=== PATIENT | male | born 1965 | race Caucasian/White ===

== ENCOUNTER 2018-12-22 00:25 | Emergency (ER) | payer BC, OTHER ==
[2018-12-22] MEDS: GI Cocktail Oral Solution 30 ML PO ONE (00:40)
[2018-12-22] MEDS: Nitroglycerin 0.4 MG Tab.SL SL ONE ×2 (01:14→01:22)
[2018-12-22 01:15] LABS: CHLORIDE,CL 104 mmol/L (98-107); SODIUM,NA 142 mmol/L (136-145)
[2018-12-22] MEDS: Nitroglycerin 0.4 MG Tab.SL ONE (01:18)
[2018-12-22] MEDS: Sodium Chloride 0.9% 1,000 ML IV SCH (01:29)
--- NOTE | 2018-12-22 01:36 | EDM.PDOC ---
ED HPI GENERAL MEDICAL PROBLEM - General Chief Complaint: Chest Pain Stated Complaint: CHEST PAIN Time Seen by Provider: 12/22/18 00:25 Source of Information: Reports: Patient History Limitations: Reports: No Limitations - History of Present Illness INITIAL COMMENTS - FREE TEXT/NARRATIVE: Patient is a 53-year-old gentleman who was brought in by girlfriend with chief complaint of chest pain about 8 out of 10 left arm numbness this has been going on for about 8 hours today patient does state that he started having chest pain 3 days ago and was heading to [facility] when he started feeling better then turned back home and he also had numbness on his left arm at the same time he denies nausea or vomiting. Patient did take some antacids on Friday which helped him but has not helped today EKG done reveals normal sinus rhythm no specific intraventricular conduction delays no acute ST changes Onset: Sudden Duration: Day(s): (3 days ago), Recurring Location: Reports: Chest Quality: Reports: Ache, Burning, Pressure, Other (Patient described as heavy and burning) Severity: Moderate Improves with: Reports: None Worsens with: Reports: Movement Context: Reports: Other (Chest pain) Associated Symptoms: Reports: Chest Pain - Related Data Allergies Allergy/AdvReac Type Severity Reaction Status Date / Time aspirin Allergy Cannot Verified 12/22/18 00:38 Remember Penicillins Allergy Cannot Verified 12/22/18 00:38 Remember Home Meds: Home Meds glipiZIDE [Glipizide ER] 5 mg PO BIDMEALS 12/22/18 [History] metFORMIN [Glucophage XR] 500 mg PO BIDMEALS 12/22/18 [History] ED ROS GENERAL - Review of Systems Review Of Systems: See Below Constitutional: Reports: Weakness HEENT: Reports: No Symptoms Respiratory: Reports: Shortness of Breath, Cough Cardiovascular: Reports: Chest Pain Endocrine: Reports: Other (Diabetes) GI/Abdominal: Reports: No Symptoms : Reports: No Symptoms Musculoskeletal: Reports: Arm Pain (Left arm) Skin: Reports: No Symptoms ED EXAM, GENERAL - Physical Exam Exam: See Below Exam Limited By: No Limitations General Appearance: Alert, WD/WN, Mild Distress Ears: Normal External Exam, Normal Canal, Hearing Grossly Normal, Normal TMs Nose: Normal Inspection, Normal Mucosa, No Blood Throat/Mouth: Normal Inspection, Normal Lips, Normal Teeth, Normal Gums, Normal Oropharynx, Normal Voice, No Airway Compromise Head: Atraumatic, Normocephalic Neck: Normal Inspection, Supple, Non-Tender, Full Range of Motion Respiratory/Chest: Lungs Clear, Decreased Breath Sounds, Prolonged Expiration Cardiovascular: Normal Peripheral Pulses, Regular Rate, Rhythm, No Edema, No Gallop, No JVD, No Murmur, No Rub GI/Abdominal: Normal Bowel Sounds, Soft, Non-Tender, No Organomegaly, No Distention, No Abnormal Bruit, No Mass (Male) Exam: Deferred Rectal (Males) Exam: Deferred Extremities: Normal Inspection, Normal Range of Motion, Non-Tender, Normal Capillary Refill, No Pedal Edema Neurological: Alert, Oriented, CN II-XII Intact, Normal Cognition, Normal Gait, Normal Reflexes, No Motor/Sensory Deficits Psychiatric: Normal Affect, Normal Mood Skin Exam: Warm, Dry, Intact, Normal Color, No Rash Lymphatic: No Adenopathy Course - Vital Signs Last Recorded V/S: Last Vital Signs Temp 97.8 F 12/22/18 00:25 Pulse 71 12/22/18 00:25 Resp 14 12/22/18 00:25 BP 165/95 H 12/22/18 00:25 Pulse Ox 98 12/22/18 00:25 - Orders/Labs/Meds Orders: Active Orders 24 hr Category Date Time Status Chest 1V Frontal [CR] Stat Exams 12/22/18 00:42 Ordered CK W CKMB [CHEM] Stat Lab 12/22/18 00:35 Received COMPREHENSIVE METABOLIC PN,CMP [CHEM] Stat Lab 12/22/18 00:35 Received INR,PT,PROTHROMBIN TIME [COAG] Stat Lab 12/22/18 00:35 Received LACTIC ACID [CHEM] Stat Lab 12/22/18 00:35 Received MAGNESIUM [CHEM] Stat Lab 12/22/18 00:35 Received PRO B-TYPE NATRIUR PEPT,BNPPRO [CHEM] Stat Lab 12/22/18 00:35 Received PTT,PARTIAL THROMBOPLSTIN TIME [COAG] Stat Lab 12/22/18 00:35 Received TROPONIN I [CHEM] Stat Lab 12/22/18 00:35 Received TSH ULTRASENSITIVE [CHEM] Stat Lab 12/22/18 00:35 Received Labs: Laboratory Tests 12/22/18 12/22/18 Range/Units 00:35 00:35 WBC 9.7 (4.0-10.2) K/uL RBC 4.98 (4.33-5.41) M/uL Hgb 14.5 (13.1-16.8) g/dL Hct 42.6 (39.0-49.0) % MCV 85.5 (84.0-98.0) fL MCH 29.1 (28.2-33.3) pg MCHC 34.0 (31.7-36.0) g/dL RDW 13.7 (11.2-14.1) % Plt Count 235 (150-350) K/uL Neut % (Auto) 56.0 (45.0-80.0) % Lymph % (Auto) 32.8 (10.0-50.0) % Garza % (Auto) 8.5 (2.0-14.0) % Eos % (Auto) 2.1 (0.0-5.0) % Baso % (Auto) 0.6 (0.0-2.0) % Neut # (Auto) 5.45 (1.40-7.00) K/uL Lymph # (Auto) 3.19 (0.50-3.50) K/uL Garza # (Auto) 0.83 (0.00-1.00) K/uL Eos # (Auto) 0.20 (0.00-0.50) K/uL Baso # (Auto) 0.06 (0.00-0.20) K/uL D-Dimer, Quantitative 354 (0-400) ng/mL Meds: Medications Discontinued Medications Generic Name Dose Route Start Last Admin Trade Name Freq PRN Reason Stop Dose Admin Al Hydroxide/Mg Hydroxide 30 ml 12/22/18 00:40 Gi Cocktail PO 12/22/18 00:41 ONETIME ONE Departure - Departure Time of Disposition: 01:54 Disposition: DC/Tfer to Acute Hospital 02 Reason for Transfer *Q: Other (None ST elevation [place]) Condition: Serious Clinical Impression: Non-ST elevated myocardial infarction (non-STEMI) Acute myocardial infarction Qualifiers: Myocardial infarction type: non-ST elevation myocardial infarction Qualified Code(s): I21.4 - Non-ST elevation (NSTEMI) myocardial infarction Referrals: PCP,Not In Area [Primary Care Provider] - Care Plan Goals: Patient was seen in the ER troponins elevated at 3.87 spoke with cardiology and hospitalist at [facility] agreed to take him patient given 2 nitros improved pain we'll start [place] [address] total 180 and heparin drip patient is allergic to aspirin no aspirin given. No beta blockers given at this time secondary to blood pressure being low. - My Orders Last 24 Hours: My Active Orders 12/22/18 00:35 CK W CKMB [CHEM] Stat COMPREHENSIVE METABOLIC PN,CMP [CHEM] Stat INR,PT,PROTHROMBIN TIME [COAG] Stat LACTIC ACID [CHEM] Stat MAGNESIUM [CHEM] Stat PRO B-TYPE NATRIUR PEPT,BNPPRO [CHEM] Stat PTT,PARTIAL THROMBOPLSTIN TIME [COAG] Stat TROPONIN I [CHEM] Stat TSH ULTRASENSITIVE [CHEM] Stat 12/22/18 00:42 Chest 1V Frontal [CR] Stat - Assessment/Plan Last 24 Hours: My Active Orders 12/22/18 00:35 CK W CKMB [CHEM] Stat COMPREHENSIVE METABOLIC PN,CMP [CHEM] Stat INR,PT,PROTHROMBIN TIME [COAG] Stat LACTIC ACID [CHEM] Stat MAGNESIUM [CHEM] Stat PRO B-TYPE NATRIUR PEPT,BNPPRO [CHEM] Stat PTT,PARTIAL THROMBOPLSTIN TIME [COAG] Stat TROPONIN I [CHEM] Stat TSH ULTRASENSITIVE [CHEM] Stat 12/22/18 00:42 Chest 1V Frontal [CR] Stat
[2018-12-22] MEDS: Ticagrelor 90 MG Tab PO ONE ×2 (01:39→01:43)
[2018-12-22] MEDS ORDERED: Morphine 2 MG/ML Syringe IVPUSH PRN (01:41)
[2018-12-22] MEDS: Pantoprazole 40 MG Vial IVPUSH ONE (01:46)
[2018-12-22] MEDS: Sodium Chloride 0.9% 10 ML Syringe FLUSH SCH (01:46)
[2018-12-22] MEDS: Heparin Sodium 5,000 Units/ML Vial IVPUSH STA (01:49)
[2018-12-22] MEDS: Heparin Sodium/D5W 25,000 UNITS/500 ML BAG IV SCH (01:53)
--- OUTSIDE RECORDS SUMMARY | 2018-12-23 16:20 | XMSREPORT ---
:1965 Author Organization [facility] Address [facility] [place] [address] Care Team Providers Name Role Phone Pcp, Ophelia MD Primary Care Provider Unavailable Reason for Referral Comprehensive Primary Care Plus (Routine) Status Reason Specialty Diagnoses / Procedures Referred By Referred To Contact Contact New Request CARDIOLOGY Diagnoses Non-ST elevation NV (NSTEMI) ([facility]) S/P cardiac catheterization [facility]iology Maris Kramer, [address] [place] [address] MD WALKER [address] [address] [place], [place] Phone: [phone] Phone: Scheduling Instructions This is an electronic referral. Reason for Visit Reason Comments Auth/Cert Status Reason Specialty Diagnoses / Procedures Referred By Contact Referred To Contact Encounter Details Date Type Department Care Team Description 12/22/2018 - Hospital Encounter [facility] Elisa Galloway MD [address] [place] [address] [phone] Non-ST elevation NV 12/23/2018 CENTER [facility] Maris Silver MD [address] [place], [place] [id number] (NSTEMI) ([facility]) [address] [place] [address] Allergies Active Allergy Reactions Severity Noted Date Comments Aspirin Unknown/Not Verified Low 12/24/2011 Does not know reaction, told was allergic as a child Metformin Diarrhea High 12/22/2018 Penicillin Unknown/Not Verified Low 12/24/2011 Does not know reaction, told was allergic as a child documented as of this encounter (statuses as of 12/23/2018) Medications Medication Sig Dispensed Refills Start Date End Date Status naproxen (ALEVE) 220 Take 440 mg by 0 Active mg tablet mouth at bedtime as needed for mild pain or moderate pain glipiZIDE Take 5 mg by 0 Active (GLUCOTROL) 5 mg mouth 2 times tablet a day with meals potassium 99 MG Take 99 mg by 0 Active tablet mouth as needed for other (Specify) (leg cramps) albuterol HFA Inhale 2 puffs 0 Active (PROVENTIL,PROAIR,VE orally Every 4 NTOLIN) 108 (90 hours as Base) MCG/ACT needed for inhaler shortness of breath or wheezing Shake well before using. aspirin 81 mg Take 1 tablet 90 tablet 0 12/24/2018 Active chewable (81 mg) by 0 tabletIndications: mouth 1 time Non-ST elevation NV per day (NSTEMI) ([facility]), S/P cardiac catheterization clopidogrel (PLAVIX) Take 1 tablet 90 tablet 4 12/24/2018 Active 75 mg (75 mg) by tabletIndications: mouth 1 time S/P cardiac per day catheterization lisinopril Take 1 tablet 90 tablet 4 12/24/2018 Active (PRINIVIL, ZESTRIL) (2.5 mg) by 0 2.5 MG mouth 1 time tabletIndications: per day Non-ST elevation NV (NSTEMI) ([facility]) metoprolol tartrate Take 1 tablet 180 tablet 4 12/23/2018 Active (LOPRESSOR) 25 mg (25 mg) by 0 tabletIndications: mouth 2 times Non-ST elevation NV a day (NSTEMI) ([facility]) nitroglycerin Dissolve 1 90 tablet 4 12/23/2018 Active (NITROSTAT) 0.4 mg tablet (0.4 0 sublingual mg) under the tabletIndications: tongue Every 5 Non-ST elevation NV minutes as (NSTEMI) ([facility]) needed for chest pain May repeat every 5 minutes for a total of 3 doses. SITagliptin Take 1 tablet 90 tablet 4 12/24/2018 Active (JANUVIA) 50 mg (50 mg) by 0 tabletIndications: mouth 1 time Type 2 diabetes per day mellitus without complication, without long-term current use of insulin ([facility]) rosuvastatin Take 2 tablets 90 tablet 0 12/23/2018 Active (CRESTOR) 20 mg (40 mg) by 0 tabletIndications: mouth every Non-ST elevation NV night at (NSTEMI) ([facility]) bedtime clopidogrel (PLAVIX) Take 1 tablet 30 tablet 2 12/26/2011 Discontinued 75 mg tablet by mouth 1 9 time per day. simvastatin (ZOCOR) Take 1 tablet 30 tablet 2 12/26/2011 Discontinued 20 mg tablet by mouth every 9 night at bedtime. metFORMIN Take 500 mg by 0 Discontinued (GLUCOPHAGE) 500 MG mouth 2 times 9 tablet a day with meals rosuvastatin Take 20 mg by 0 Discontinued (CRESTOR) 20 mg mouth every 9 tablet night at bedtime documented as of this encounter (statuses as of 12/23/2018) Active Problems Problem Noted Date S/P cardiac catheterization 12/22/2018 Stented coronary artery 12/22/2018 Overview: RCA Type 2 diabetes mellitus, without long-term current use of insulin 12/22/2018 Other hyperlipidemia 12/22/2018 documented as of this encounter (statuses as of 12/23/2018) Resolved Problems Problem Noted Date Resolved Date Non-ST elevation NV (NSTEMI) 12/22/2018 12/23/2018 documented as of this encounter (statuses as of 12/23/2018) Immunizations Name Dates Previously Given Next Due Influenza Vaccine 12/26/2011 documented as of this encounter Social History Tobacco Use Types Packs/Day Years Used Date Current Every Day Smoker Cigarettes 1.5 40 Smokeless Tobacco: Never Used Tobacco Cessation: Ready to Quit: Yes; Counseling Given: No Alcohol Use Drinks/Week oz/Week Comments Yes 1 Cans of beer 0.6 Alcohol Habits Answer Date Recorded How often do you have a drink containing alcohol? Monthly or less 12/22/2018 How many drinks containing alcohol do you have on a 1 or 2 12/22/2018 typical day when you are drinking? How often do you have six or more drinks on one Not asked occasion? Sexually Active Control Partners Comments Yes Female Sex Assigned at Date Recorded Not on file Job Start Date Occupation Industry Not on file Not on file Not on file Travel History Travel Start Travel End No recent travel history available. documented as of this encounter Last Filed Vital Signs Vital Sign Reading Time Taken Blood Pressure 121/72 12/23/2018 12:28 PM CDT Pulse 69 12/23/2018 12:28 PM CDT Temperature 36.6 C (97.8 F) 12/23/2018 12:28 PM CDT Respiratory Rate 13 12/23/2018 12:28 PM CDT Oxygen Saturation 92% 12/23/2018 8:00 AM CDT Inhaled Oxygen Concentration - - Weight 106.9 kg (235 lb 10.8 oz) 12/23/2018 4:00 AM CDT Height 185.4 cm (6' 1") 12/22/2018 3:40 AM CDT Body Mass Index 31.09 12/22/2018 3:40 AM CDT documented in this encounter Functional Status Functional Status Response Date of Assessment Is the person deaf or does he/she have serious difficulty No 12/22/2018 hearing? Is this person blind or does he/she have difficulty Yes 12/22/2018 seeing even when wearing glasses? Do you have difficulty with walking, balance, climbing No 12/22/2018 stairs, or had a fall in the last 3 months? Does the patient have difficulty dressing or bathing? No 12/22/2018 Because of a physical, mental, or emotional condition; No 12/22/2018 does this person have difficulty doing errands alone such as visiting a doctor's office or shopping? Cognitive Status Response Date of Assessment Because of a physical, mental, or emotional condition; No 12/22/2018 does this person have serious difficulty concentrating, remembering, or making decisions? documented as of this encounter Discharge Summaries Not on filedocumented in this encounter Discharge Instructions InstructionsSannlibertad-Maris Lagos MD - 12/23/2018Take all meds as prescribed. Follow up with cardiology outpatient in 4-6 weeks. Follow up with primary doctor in one week. For your diabetes, we started a new medicine called Januvia. You can take this every morning to help lower your blood sugar. You should stop your metformin because it gave you diarrhea. Continue your glipizide. For your heart attack, we started two blood thinners - plavix and aspirin. It is very important that you take both to protect your stent and keep your blood thin. If you have any bleeding, see your doctor to discuss. You also were started on a low dose blood pressure pill called lisinopril to help your heart, and a medicine to control your heart rate called lopressor ( metoprolol). You will take the lopressor twicea day. Please follow up within a week with your primary provider to recheck these medications and follow upon how you are doing. You will also need to see cardiology here back in 4-6 weeks. If you have recurrent pain, go to the ER. AttachmentsThe following attachments cannot be sent through Care Everywhere.Stents, Coronary (German)Diet, Low-Salt (German)Eating Heart- Healthy Foods (German)documented in this encounter Medications at Time of Discharge Medication Sig Dispensed Refills Start Date End Date aspirin 81 mg chewable Take 1 tablet (81 90 tablet 0 12/24/2018 12/29/2019 tabletIndications: Non-ST mg) by mouth 1 time elevation NV (NSTEMI) per day ([facility]), S/P cardiac catheterization clopidogrel (PLAVIX) 75 Take 1 tablet (75 90 tablet 4 12/24/2018 mg tabletIndications: S/P mg) by mouth 1 time cardiac catheterization per day lisinopril (PRINIVIL, Take 1 tablet (2.5 90 tablet 4 12/24/2018 12/29/2019 ZESTRIL) 2.5 MG mg) by mouth 1 time tabletIndications: Non-ST per day elevation NV (NSTEMI) ([facility]) metoprolol tartrate Take 1 tablet (25 180 tablet 4 12/23/2018 12/28/2019 (LOPRESSOR) 25 mg mg) by mouth 2 tabletIndications: Non-ST times a day elevation NV (NSTEMI) ([facility]) nitroglycerin (NITROSTAT) Dissolve 1 tablet 90 tablet 4 12/23/20182019 0.4 mg sublingual (0.4 mg) under the tabletIndications: Non-ST tongue Every 5 elevation NV (NSTEMI) minutes as needed ([facility]) for chest pain May repeat every 5 minutes for a total of 3 doses. SITagliptin (JANUVIA) 50 Take 1 tablet (50 90 tablet 4 12/24/20182019 mg tabletIndications: mg) by mouth 1 time Type 2 diabetes mellitus per day without complication, without long-term current use of insulin ([facility]) rosuvastatin (CRESTOR) 20 Take 2 tablets (40 90 tablet 0 12/23/20182019 mg tabletIndications: mg) by mouth every Non-ST elevation NV night at bedtime (NSTEMI) ([facility]) naproxen (ALEVE) 220 mg Take 440 mg by 0 tablet mouth at bedtime as needed for mild pain or moderate pain glipiZIDE (GLUCOTROL) 5 Take 5 mg by mouth 0 mg tablet 2 times a day with meals potassium 99 MG tablet Take 99 mg by mouth 0 as needed for other (Specify) (leg cramps) albuterol HFA Inhale 2 puffs 0 (PROVENTIL,PROAIR,VENTOLI orally Every 4 N) 108 (90 Base) MCG/ACT hours as needed for inhaler shortness of breath or wheezing Shake well before using. documented as of this encounter Progress Notes Citlali Barajas PHARM D - 12/22/2018 1:52 PM CDTCoronary Intervention Post Procedure Medication Education by Pharmacy Coronary intervention post procedure medication education was completed by pharmacy. The mechanism of action, efficacy, side effects, risks, and monitoring of aspirin, clopidogrel, metoprolol, rosuvastatin, and sublingual nitroglycerin were reviewed with the patient. All questions were answered, andthe patient and family verbalized understanding. Please call #[phone] with any questions. Respectfully, Citlali Barajas PharmD [phone] Citlali Woodward, PHARM D - 12/22/2018 12:02 PM CDT12/22/2018 12:02 PM -- Patient was seen by the pharmacy med reconciliation team and HOME MEDICATIONS have been reconciled and updated to match the patient's home usage. Citlali Barajas PharmD Cabrera Yadav MD - 12/22/2018 7:01 AM CDTAssessment: 1. Acute non-ST segment elevation myocardial infarction. 2. Hypertension. 3. Type 2 diabetes mellitus. 4. Hyperlipidemia. 5. Cerebrovascular disease, history of a CVA. Recommendations 1. Continue IV nitroglycerin and morphine as needed. 2. Left heart cardiac catheterization. The risk and benefits have been explained to the patient who wishes to proceed. The patient is a 53-year-old male w ho was in his usual state of health until the past several days when he began experience intermittent chest discomfort. He describes it as a substernal pressure sensation. On the day of admission, the chest pain became more severe or persistent. Because of this he was admitted to the local hospital in [facility] where he was felt to be experiencing an acute non-ST segment elevation myocardial infarction, characterized by an elevated troponin and an EKG which revealed ST segment depression. He was started on IV heparin and was given nitroglycerin with some improvement in the chest discomfort. He was also given a dose of Brilinta 180 mg was transferred to [place] further management. He continued to have chest discomfort after transfer at times up to a level 10 out of 10. He was given IV nitroglycerin and the dose was increased to maximal levels. He was also given morphine which improved his chest discomfort down to approximately a level 2 outof 10. The patient denies any previous MIs. He did have a CVA approximately 6 years ago in 2012. This didnot result in any significant residual defects. He has always been active and able to engage in most of his any problems. He denies any signs or symptoms of decompensated heart failure, any significant symptomatic cardiac arrhythmi as or claudication. Coronary risk factors are positive for smoking and he smokes 1-1/2 packs/day of cigarettes. He doeshave hypertension, type 2 diabetes mellitus and hyperlipidemia. Family history is positive in that his father and brother both presumably from myocardial infarctions at the ages of approximately 60 and 55, respectively. The patient denies any other significant medical illnesses. Allergies ar e to penicillin and aspirin. documented in this encounter Plan of Treatment Name Priority Associated Diagnoses Order Schedule CLINIC REFERRAL CARDIOLOGY Routine Non-ST elevation NV (NSTEMI) Ordered: 02/2019 ONE CHART ([facility]) S/P cardiac catheterization documented as of this encounter Procedures Procedure Name Priority Date/Time Associated Comments Diagnosis GLUCOSE BY METER, Routine 12/23/2018 11:21 Results for this POCT AM CDT procedure are in the results section. CREATININE Routine 12/23/2018 6:42 Results for this AM CDT procedure are in the results section. GLUCOSE BY METER, Routine 12/23/2018 6:32 Results for this POCT AM CDT procedure are in the results section. GLUCOSE BY METER, Routine 12/22/2018 9:23 Results for this POCT PM CDT procedure are in the results section. GLUCOSE BY METER, Routine 12/22/2018 5:10 Results for this POCT PM CDT procedure are in the results section. GLUCOSE BY METER, Routine 12/22/2018 12:19 Results for this POCT PM CDT procedure are in the results section. EKG Routine 12/22/2018 11:48 Results for this AM CDT procedure are in the results section. ECHO ADULT COMPLETE Routine 12/22/2018 10:29 Results for this AM CDT procedure are in the results section. PTT Timed Routine 12/22/2018 9:57 Results for this AM CDT procedure are in the results section. TROPONIN I Timed Routine 12/22/2018 9:57 Results for this AM CDT procedure are in the results section. EKG STAT 12/22/2018 8:55 Results for this AM CDT procedure are in the results section. GLUCOSE BY METER, Routine 12/22/2018 8:40 Results for this POCT AM CDT procedure are in the results section. ACTIVATED CLOTTING Routine 12/22/2018 7:39 Results for this TIME POCT AM CDT procedure are in the results section. CARDIAC CATH POSSIBLE Routine 12/22/2018 7:36 Results for this ANGIOPLASTY STENT AM CDT procedure are in BAND ATTACHER the results section. LIPID PANEL Routine 12/22/2018 6:59 Results for this AM CDT procedure are in the results section. GLYCATED HEMOGLOBIN Routine 12/22/2018 6:59 Results for this AM CDT procedure are in the results section. TROPONIN I Timed Routine 12/22/2018 6:59 Results for this AM CDT procedure are in the results section. LAB ONLY-COMPLETE Routine 12/22/2018 4:10 Results for this BLOOD COUNT WITH AM CDT procedure are in DIFFERENTIAL the results section. PTT MURTAZA 12/22/2018 4:10 Results for this AM CDT procedure are in the results section. TROPONIN I Timed Routine 12/22/2018 4:10 Results for this AM CDT procedure are in the results section. COMPREHENSIVE Routine 12/22/2018 4:10 Results for this METABOLIC PANEL AM CDT procedure are in the results section. COMPLETE BLOOD COUNT Routine 12/22/2018 4:10 Results for this WITH DIFFERENTIAL AM CDT procedure are in the results section. EKG MURTAZA 12/22/2018 3:51 Results for this AM CDT procedure are in the results section. documented in this encounter Results GLUCOSE BY METER, POCT (12/23/2018 11:21 AM CDT)Only the most recent of6 resultswithin the time period is included. Glucose POC 178 (H) 70 - 100 mg/dL [facility] POINT OF CARE TESTING Specimen Blood Performing Organization Address City/[facility] Cent[facility]ode Phone Number [facility] POINT OF [address] [place] [address] CARE TESTING CREATININE (12/23/2018 6:42 AM CDT) Creatinine 0.99 0.80 - 1.[address] mg/dL Age 53 [address] eGFR Non- 78 >=[address] Guyanese mL/min/1.73m2 eGFR >90 >=[address] mL/min/1.73m2 Specimen Blood Performing Organization Address [facility] Phone Number [place] [address] CLINIC [address] [place] [address] EKG to be done 3 hours post coronary intervention (12/22/2018 11:48 AM CDT)Only the most recent of3 resultswithin the time period is included. EKG WAVEFORM TRACEMASTESTEVAN MORENO LLB Normal sinus rhythm Left axis deviation Inferior infarct , age undetermined Abnormal ECG When compared with ECG of 22-DEC-2018 08:55, Premature ventricular complexes are no longer Present Ventricular Rate: 68 BPM Atrial Rate: 68 BPM P-R Interval: 184 ms QRS Duration: 108 ms Q-T Interval: 420 ms QTc Calculation(Bazett): 446 ms Calculated P [place]: 16 degrees Calculated R [place]: -37 degrees Calculated T [place]: -3 degrees Specimen Narrative Performed At Performing Organization Address City/[facility] Center[facility]az Phone Number TRACEMASTER TIFFANIE LLTraci ECHO ADULT COMPLETE (12/22/2018 10:29 AM CDT) Specimen Narrative Performed At [facility] Patient: YVES HOOD MR#:[id number] Exam Date: 12/22/[address] 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 The ejection fraction is visually estimated to be 55 %. Right Ventricle: Low normal right ventricular systolic function. IVC: Normal IVC size with normal respirophasic changes. Pericardium: No significant pericardial effusion.No functionally significant valvular abnormalities. Comparison Study Comparison Date: 12/25/2011 Comparison Study: Transthoracic Echocardiogram New RWMA's noted on today's exam, RV function has worsened, Aortic regurgitation has worsened Findings Left Ventricle: Normal left ventricular size. Normal left ventricular wall thickness. Normal left ventricular systolic function. The ejection fraction is visually estimated to be 55 %. The basal inferior and mid inferior wall segments are hypokinetic. Grade 1 left ventricular diastolic dysfunction. IVS: Increased left ventricular septal thickness. Left Atrium: Normal left atrial size. Aortic Valve: The aortic valve is tricuspid. Mild aortic cuspal thickening. Mild aortic cuspal calcification. Normal aortic cuspal mobility. Trivial aortic regurgitation. No aortic stenosis. Aorta: The sinus of valsalva is normal in size measuring 30.0 mm. The ascending aorta is normal in size measuring 34.0 mm. Mitral Valve: Mild mitral leaflet thickening. Trivial mitral regurgitation. No mitral stenosis. IAS: No gross evidence of shunt flow seen; however the possibility of a PFO cannot be completely ruled out. Right Ventricle: Upper limits of normal right ventricular size. Low normal right ventricular systolic function. Normal right ventricular wall thickness. TAPSE measures 16 mm. Pulmonary Artery: The tricuspid jet envelope definition is inadequate for estimation of RV systolic pressure. Right Atrium: Normal right atrial size by visual assessment. Tricuspid Valve: Normal tricuspid valve structure. Trivial tricuspid regurgitation. Pulmonic Valve: Normal pulmonary valve structure. No significant pulmonary regurgitation. IVC: Normal IVC size with normal respirophasic changes. Pericardium: No significant pericardial effusion. No functionally significant valvular abnormalities. There is pericardial fat. No pleural effusion. Measurements Left Ventricle Aortic Valve LabelValueNormal Value LabelValue Normal Value LVDd, 2D42 mm LVOT Vmax 137 cm/s LVDs, 2D26.6 mm AV Vmax 202 cm/s IVSd, 2D13.5 mm LVOTd 21 mm LVPWd, 2D 10.6 mm LVOT VTI29 cm FS, 2D37 % LVOT PGmax8 mmHg Cardiac Output6.6 L/min AV [id number] cm/s Cardiac Index 2.84 AV VTI42 cm L/min/m-sq AV PGmax 16 mmHg Right Ventricle AV PGmean 9 mmHg LabelValueNormal Value KENNETH (Vmax)2.3 cm-sq TAPSE 16 mm AV Vmax, [id number] cm/s Left Atrium Mitral Valve LabelValueNormal Value LabelValue Normal Value LADs Long.53 mm MV E Vmax 73 cm/s LA Volume Index 19.4 ml/m-sq MV A Vmax 80 cm/s Aorta MV E/A0.91 LabelValueNormal Value MV E/E' lateral 7.8 Ao Asc34 mm MV E/E' septal9.5 Ao Sinus, MM33 mm MV Dec Time 175 ms Ao Sinus, 2D30 mm MV E' septal7.6 cm/s Great Vessels MV PHT0.05 s LabelValueNormal Value MVA PHT 4.3 cm-sq PVein S 45 cm/s MV E' lateral 9.4 cm/s PVein D 53 cm/s Tricuspid Valve S/D Ratio 0.9 Label Value Normal Value Heart Rate RA Pressure 3 mmHg LabelValueNormal Value Pulmonic Valve Heart Rate66 bpm LabelValue Normal Value PV Vmax 98 cm/s PV PGmax4 mmHg at 03: 21 PM Wall Motion Scores -1 - Not Scored, 0 - Unknown, 1 - Normal or hyperkinesia,2 - Hypokinesia, 3 - Akinesia, 4 - Dyskinesia, 5 - Aneurysm Procedure Note Interface, Inc Results No Pull Forward - 12/22/2018 3:22 PM CDT Patient: YVES HOOD MR#: [id number] Exam Date: 12/22/[address] 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 The ejection fraction is visually estimated to be 55 %. Right Ventricle: Low normal right ventricular systolic function. IVC: Normal IVC size with normal respirophasic changes. Pericardium: No significant pericardial effusion.No functionally significant valvular abnormalities. Comparison Study Comparison Date: 12/25/2011 Comparison Study: Transthoracic Echocardiogram New RWMA's noted on today's exam, RV function has worsened, Aortic regurgitation has worsened Findings Left Ventricle: Normal left ventricular size. Normal left ventricular wall thickness. Normal left ventricular systolic function. The ejection fraction is visually estimated to be 55 %. The basal inferior and mid inferior wall segments are hypokinetic. Grade 1 left ventricular diastolic dysfunction. IVS: Increased left ventricular septal thickness. Left Atrium: Normal left atrial size. Aortic Valve: The aortic valve is tricuspid. Mild aortic cuspal thickening. Mild aortic cuspal calcification. Normal aortic cuspal mobility. Trivial aortic regurgitation. No aortic stenosis. Aorta: The sinus of valsalva is normal in size measuring 30.0 mm. The ascending aorta is normal in size measuring 34.0 mm. Mitral Valve: Mild mitral leaflet thickening. Trivial mitral regurgitation. No mitral stenosis. IAS: No gross evidence of shunt flow seen; however the possibility of a PFO cannot be completely ruled out. Right Ventricle: Upper limits of normal right ventricular size. Low normal right ventricular systolic function. Normal right ventricular wall thickness. TAPSE measures 16 mm. Pulmonary Artery: The tricuspid jet envelope definition is inadequate for estimation of RV systolic pressure. Right Atrium: Normal right atrial size by visual assessment. Tricuspid Valve: Normal tricuspid valve structure. Trivial tricuspid regurgitation. Pulmonic Valve: Normal pulmonary valve structure. No significant pulmonary regurgitation. IVC: Normal IVC size with normal respirophasic changes. Pericardium: No significant pericardial effusion. No functionally significant valvular abnormalities. There is pericardial fat. No pleural effusion. Measurements Left Ventricle Aortic Valve Label Value Normal Value Label Value Normal Value LVDd, 2D 42 mm LVOT Vmax 137 cm/s LVDs, 2D 26.6 mm AV Vmax 202 cm/s IVSd, 2D 13.5 mm LVOTd 21 mm LVPWd, 2D 10.6 mm LVOT VTI 29 cm FS, 2D 37 % LVOT PGmax 8 mmHg Cardiac Output 6.6 L/min AV Vmean 147 cm/s Cardiac Index 2.84 AV VTI 42 cm L/min/m-sq AV PGmax 16 mmHg Right Ventricle AV PGmean 9 mmHg Label Value Normal Value KENNETH (Vmax) 2.3 cm-sq TAPSE 16 mm AV Vmax, Caliper 202 cm/s Left Atrium Mitral Valve Label Value Normal Value Label Value Normal Value LADs Long. 53 mm MV E Vmax 73 cm/s LA Volume Index 19.4 ml/m-sq MV A Vmax 80 cm/s Aorta MV E/A 0.91 Label Value Normal Value MV E/E' lateral 7.8 Ao Asc 34 mm MV E/E' septal 9.5 Ao Sinus, MM 33 mm MV Dec Time 175 ms Ao Sinus, 2D 30 mm MV E' septal 7.6 cm/s Great Vessels MV PHT 0.05 s Label Value Normal Value MVA PHT 4.3 cm-sq PVein S 45 cm/s MV E' lateral 9.4 cm/s PVein D 53 cm/s Tricuspid Valve S/D Ratio 0.9 Label Value Normal Value Heart Rate RA Pressure 3 mmHg Label Value Normal Value Pulmonic Valve Heart Rate 66 bpm Label Value Normal Value PV Vmax 98 cm/s PV PGmax 4 mmHg at 03: 21 PM Wall Motion Scores -1 - Not Scored, 0 - Unknown, 1 - Normal or hyperkinesia, 2 - Hypokinesia, 3 - Akinesia, 4 - Dyskinesia, 5 - Aneurysm Performing Organization Address [facility] Phone Number [facility] , [place] TROPONIN I (12/22/2018 9:57 AM CDT)Only the most recent of3 resultswithin the time period is included. Troponin I 45.751 (H) 0.000 - 0.028 ng/mL [place] [address] [facility] Specimen Blood Performing Organization Address [facility] Phone Number [place] [address] [facility] [address], [place] [address] PTT (12/22/2018 9:57 AM CDT)Only the most recent of2 resultswithin the time period is included. APTT 119 (H) 24 - [address] Specimen Blood Performing Organization Address [facility] Phone Number [place] [address] [facility] [address], [place] [address] ACTIVATED CLOTTING TIME POCT (12/22/2018 7:39 AM CDT) Activated Clotting 197 (H) 100 - [address] [facility] POINT OF CARE TESTING Specimen Blood Narrative Performed At DEVICE: [facility] POINT OF CARE TESTING [id number] Performing Organization Address [facility] Phone Number [facility] POINT OF [address] [place] [address] CARE TESTING Cardiac Cath Possible Angioplasty Stent Sheeter Operator - Left; With grafts? Unknown ( 12/22/2018 7:36 AM CDT) Specimen Narrative Performed At [facility] Patient: YVES HOOD [facility] Exam Date:[address] SExam Time: 07:36 AM-07:56 AM [place], [place] [id number] Department of Interventional Cardiology Diagnostic Heart Catheterization Report, Cardiac Interventional Report : 1963Fluoro Time: 6.1 min. Patient Status:InpatientAge: 53 year(s)Cath Status: Patient Room:Formerly named [facility] Gender: Male Diagnostic Medical Engineer:SAM FINN MD Abstract Writer:SAM FINN MD Indication:Angina/NV: myocardial infarction with ST elevation (STEMI). Interventional Conclusions: - Successful drug-eluting stent intervention on the Distal right coronary artery Interventional Summary Distal right coronary artery: A successful Drug Eluting Stent was deployed using aRESOLUTE PAMELA [id number]. Procedures Performed: Fluoro 0.1-60 Minutes. Medication/Infusion/Drip. Art Access - R radial artery. Selective Rt Coronary Angiography. Selective Lt Coronary Angiography. Activated Clotting Time. Drug Eluting Stent Placement. Coronary Thrombectomy. Radial Artery Compression Device. Diagnostic Findings: Coronary Angiography The coronary circulation is co-dominant. Left Main Left main artery: The segment is large. Angiography shows no disease. Left Anterior Descending Left anterior descending artery: The segment is large. Proximal left anterior descending: There is a 30 % stenosis. Mid left anterior descending: There is a 30 % stenosis. Distal left anterior descending : Angiography shows luminal irregularites. First diagonal: The segment is small. There is a 50 % stenosis. Circumflex Circumflex artery: The segment is large. Proximal circumflex: There is a 30 % stenosis. First obtuse marginal: The segment is small. Angiography shows no disease. Second obtuse marginal: The segment is large. Angiography shows no disease. First left posterolateral: There is a 60 % stenosis in the proximal portion of the segment. Right Coronary Right coronary artery: The segment is large. Angiography shows no disease. Distal right coronary artery: There is a 100 % stenosis. Right posterior descending artery: The segment is small. Left Heart Cath Left ventricular function was not assessed. Ejection fraction was not calculated. Interventional Findings: PCI Procedure Data: The syntax score is intermediate. Interventional Details Distal right coronary artery: The initial stenosis was 100 %. This was an ACC/ AHA High/C lesion for intervention. Guidewire crossing was successful. A successful Thrombectomy was performed using a CATH GUIDE 6FR LAUNCHER JR4.0 during setup, a RUNTHROUGH XT FLOPPY during setup, and a ASPIRATION CATHETER EXPORT AP During Procedure. The total number of attempt(s) was 1. - This attempt was executed for 20.0 seconds with 25 ml output volume. A successful Drug Eluting Stent was deployed using aRESOLUTE PAMELA [id number] During Procedure. The total number of attempt(s) was 1. The maximum inflation pressure was 16(david ). Following intervention there is a 0 % residual stenosis. There was VIRY Flow 0 before the procedure and VIRY Flow 3 following the procedure. No significant vessel dissection noted. Procedure Narrative: Access Right radial artery: The puncture site was infiltrated with 2.0 ml of 1% Lidocaine. Vascular access was obtained using modified seldinger technique and a 6FR GLIDESHEATH 25CM was advanced into the vessel. Hemostasis/Sheath Status: Hemostasis was successful using mechanical compression (RADIAL TR BAND). Coronary Angiography Left Coronary System: A catheter was positioned into the Vessel Ostium under fluoroscopic guidance. Contrast injections were performed using hand injection. Angiograms were obtained in multiple views. Right Coronary System: A catheter was positioned into the Vessel Ostium under fluoroscopic guidance. Contrast injections were performed using hand injection. Angiograms were obtained in multiple views. Additional Procedures Mechanical Coronary Aspiration was performed using a ASPIRATION CATHETER EXPORT AP. Hemodynamic Impressions General Impressions: Hemodynamic assessment demonstrates No systemic hypertension. Hemodynamic Findings Pressures: Baseline: AOpressure 104/65mmHg, mean 97. Hemodynamic Pressures-Phase: Baseline Location : Ao Pressure s : 104 mmHg Pressure d : 65 mmHg Pressure m : 97 mmHg HR : 73 bpm Flow Calculations, Phase: Baseline VO2: 344.71 ml/min Shunts Acute complication: No complications Contrast: Description DoseUnit HIS No. Reference No. Serial No.Lot No. [id number] Ordering Physician:CABRERA PARTIDA MD [facility] CCL Marble Setter Helper:JACOB SANDERS RN Scrub: MARS JASMINE Scrub: AMADOR ESTRELLA Monitor: KATE Primary Medical Engineer:CABRERA PARTIDA MD [facility] Quality Assurance Coach: KELLEN PIKE RT(R) Diagnostic Physician Signature: (No Signature Object) Interventional Physician Signature: (No Signature Object) Pre - Post - Procedure Note Interface, Inc Results No Pull Forward - 12/23/2018 9:32 AM CDT Patient: YVES HOOD [facility] Exam Date: 12/22/[address] Exam Time: 07:36 AM-07:56 AM [place] [address] Department of Interventional Cardiology Diagnostic Heart Catheterization Report, Cardiac Interventional Report : 1965 Fluoro Time: 6.1 min. Patient Status: Inpatient Age: 53 year(s) Cath Status: Patient Room: Formerly named [facility] Gender: Male Diagnostic Medical Engineer: SAM FINN MD Abstract Writer: SAM FINN MD Indication: Angina/NV: myocardial infarction with ST elevation (STEMI). Interventional Conclusions: - Successful drug-eluting stent intervention on the Distal right coronary artery Interventional Summary Distal right coronary artery: A successful Drug Eluting Stent was deployed using a RESOLUTE PAMELA [id number]. Procedures Performed: Fluoro 0.1-60 Minutes. Medication/Infusion/Drip. Art Access - R radial artery. Selective Rt Coronary Angiography. Selective Lt Coronary Angiography. Activated Clotting Time. Drug Eluting Stent Placement. Coronary Thrombectomy. Radial Artery Compression Device. Diagnostic Findings: Coronary Angiography The coronary circulation is co-dominant. Left Main Left main artery: The segment is large. Angiography shows no disease. Left Anterior Descending Left anterior descending artery: The segment is large. Proximal left anterior descending: There is a 30 % stenosis. Mid left anterior descending: There is a 30 % stenosis. Distal left anterior descending : Angiography shows luminal irregularites. First diagonal: The segment is small. There is a 50 % stenosis. Circumflex Circumflex artery: The segment is large. Proximal circumflex: There is a 30 % stenosis. First obtuse marginal: The segment is small. Angiography shows no disease. Second obtuse marginal: The segment is large. Angiography shows no disease. First left posterolateral: There is a 60 % stenosis in the proximal portion of the segment. Right Coronary Right coronary artery: The segment is large. Angiography shows no disease. Distal right coronary artery: There is a 100 % stenosis. Right posterior descending artery: The segment is small. Left Heart Cath Left ventricular function was not assessed. Ejection fraction was not calculated. Interventional Findings: PCI Procedure Data: The syntax score is intermediate. Interventional Details Distal right coronary artery: The initial stenosis was 100 %. This was an ACC/ AHA High/C lesion for intervention. Guidewire crossing was successful. A successful Thrombectomy was performed using a CATH GUIDE 6FR LAUNCHER JR4.0 during setup, a RUNTHROUGH XT FLOPPY during setup, and a ASPIRATION CATHETER EXPORT AP During Procedure. The total number of attempt(s) was 1. - This attempt was executed for 20.0 seconds with 25 ml output volume. A successful Drug Eluting Stent was deployed using a RESOLUTE PAMELA [id number] During Procedure. The total number of attempt(s) was 1. The maximum inflation pressure was 16(david ). Following intervention there is a 0 % residual stenosis. There was VIRY Flow 0 before the procedure and VRIY Flow 3 following the procedure. No significant vessel dissection noted. Procedure Narrative: Access Right radial artery: The puncture site was infiltrated with 2.0 ml of 1% Lidocaine. Vascular access was obtained using modified seldinger technique and a 6FR GLIDESHEATH 25CM was advanced into the vessel. Hemostasis/Sheath Status: Hemostasis was successful using mechanical compression (RADIAL TR BAND). Coronary Angiography Left Coronary System: A catheter was positioned into the Vessel Ostium under fluoroscopic guidance. Contrast injections were performed using hand injection. Angiograms were obtained in multiple views. Right Coronary System: A catheter was positioned into the Vessel Ostium under fluoroscopic guidance. Contrast injections were performed using hand injection. Angiograms were obtained in multiple views. Additional Procedures Mechanical Coronary Aspiration was performed using a ASPIRATION CATHETER EXPORT AP. Hemodynamic Impressions General Impressions: Hemodynamic assessment demonstrates No systemic hypertension. Hemodynamic Findings Pressures: Baseline: AO pressure 104/65mmHg, mean 97. Hemodynamic Pressures-Phase: Baseline Location : Ao Pressure s : 104 mmHg Pressure d : 65 mmHg Pressure m : 97 mmHg HR : 73 bpm Flow Calculations, Phase: Baseline VO2: 344.71 ml/min Shunts Acute complication: No complications Contrast: Description Dose Unit HIS No. Reference No. Serial No. Lot No. Omnipaque 130.000 ml C34 C34 Ordering Physician: CABRERA PARTIDA MD [facility] CCL Marble Setter Helper: JACOB SANDERS RN Scrub: TIANA JASMINET Scrub: AMADOR ESTRELLA Monitor: EMILY MEJIA Primary Medical Engineer: CABRERA PARTIDA MD [facility] Quality Assurance Coach: KELLEN PIKE, RT(R) Diagnostic Physician Signature: (No Signature Object) Interventional Physician Signature: (No Signature Object) Pre - Post - Performing Organization Address [facility] Phone Number [facility], [place] GLYCATED HEMOGLOBIN (12/22/2018 6:59 AM CDT) Pathologist [facility] Hgb A1C 9.8 (H) <5.7 % [facility] Estimated Average 235 mg/dL [facility] Specimen Blood Narrative Performed At ADA Interpretive Guidelines [facility] When Using HbA1c for Diagnosis Prediabetes 5.7 - 6.4% Diabetes >=6.5% When Using HbA1c for Monitoring a Person Known to Have Diabetes, < 7% is a reasonable goal for many non adults, < 7.5% should be considered in children and adolescents (<19 years) with type 1 diabetes. ADA Standards of Medical Care in Diabetes - 2019 Performing Organization Address [facility] Phone Number [facility] [address] [facility] [place] [phone] LIPID PANEL (12/22/2018 6:59 AM CDT) [facility] Cholesterol 143 100 - 200 mg/dL [facility] Triglyceride 129 50 - 150 mg/dL [facility] HDL 26 (L) 40 - 80 mg/dL [facility] LDL 91 0 - 129 mg/dL [facility] Specimen Blood Performing Organization Address [facility] Phone Number [facility] [address] [place] [address] LAB ONLY-COMPLETE BLOOD COUNT WITH DIFFERENTIAL (12/22/2018 4:10 AM CDT) Pathologist [facility] WBC 11.2 (H) 4.0 - 11.0 K/uL [address] RBC 4.82 4.40 - 5.80 [place] [address] [facility] M/uL Hemoglobin 13.8 13.5 - 17.[address] g/dL Hematocrit 41.2 40.0 - 50.0 % [address] MCV 85.5 80.0 - 98.[address] MCH 28.6 25.5 - 34.[address] MCHC 33.5 31.5 - 36.[address] g/dL RDW-CV 13.2 11.5 - 15.5 % [address] RDW-SD 40.7 35.5 - 50.[address] Platelet Count 216 140 - 400 K/uL [address] MPV 9.4 8.5 - 12.[address] Seg Neut Absolute 7.8 1.8 - 8.0 K/uL [address] Lymphocytes Absolute 2.4 0.8 - 4.1 K/uL [address] Monocytes Absolute 0.8 0.0 - 1.0 K/uL [address] Eosinophils Absolute 0.1 0.0 - 0.7 K/uL [address] Basophil Absolute 0.1 0.0 - 0.2 K/uL [address] Immature Granulocyte 0.04 0.00 - 0.[address] Absolute K/uL Neutrophils Abs. 7,800 /uL [address] (Segs and Bands) Neutrophils Percent 70.1 % [address] Lymphocytes Percent 21.4 % [address] Monocytes Percent 6.7 % [address] Immature Granulocyte 0.4 % [address] Percent Eosinophils Percent 1.3 % [address] Basophil Percent 0.5 % [address] Nucleated RBC 0 /[address] Specimen Blood Performing Organization Address City/State/Zipcode Phone Number [address] [place] [address] COMPREHENSIVE METABOLIC PANEL (12/22/2018 4:10 AM CDT) [facility] Glucose 242 (H) 70 - 100 mg/dL [address] BUN 12 6 - 22 mg/dL [address] Creatinine 1.05 0.80 - 1.[address] mg/dL BUN/Creatinine Ratio 11.4 10.0 - 25.[address] Sodium 139 135 - 145 meq/L [address] Potassium 4.2 3.5 - 5.3 meq/L [address] Chloride 105 99 - 110 meq/L [address] CO2 25 20 - 29 meq/L [address] Anion Gap with K 13 6 - 20 meq/L [address] Calcium 9.2 8.5 - 10.[address] mg/dL Protein Total 6.9 6.0 - 8.2 g/dL [address] Albumin 4.2 3.5 - 5.0 g/dL [address] Alkaline Phosphatase 80 30 - 150 U/L [address] AST - SGOT 39 (H) 0 - 35 U/L [address] ALT - SGPT 16 0 - 55 U/L [address] Bilirubin Total 0.5 0.2 - 1.2 mg/dL [address] Age [address] eGFR Non- 73 >=[address] Guyanese mL/min/1.73m2 eGFR 89 >=[address] mL/min/1.73m2 Specimen Blood Performing Organization Address City/State/Zipcode Phone Number [address] [place] [phone] documented in this encounter Visit Diagnoses Diagnosis Stented coronary artery - Primary Postsurgical percutaneous transluminal coronary angioplasty status Non-ST elevation NV (NSTEMI) ([facility]) Acute myocardial infarction, unspecified site, episode of care unspecified S/P cardiac catheterization Other postprocedural status Type 2 diabetes mellitus without complication, without long-term current use of insulin ([facility]) documented in this encounter Discharge Diagnoses Not on filedocumented in this encounter Administered Medications Medication Order MAR Action Action Date Dose Rate Site acetaminophen (TYLENOL) tablet 650 mg 650 mg, Oral, Every four hours prn, Starting Fri12/22/18 at 0840, Until Discontinued, mild pain, Post-Procedure (Cath), Pain Scale 1 - 3, aspirin chewable tablet 81 mg Given 12/23/2018 7:37 AM CDT 81 mg 81 mg, Oral, Daily, First dose on Fri12/23/18 at 0900, Until Discontinued, Post-Procedure (Cath) bisacodyl (DULCOLAX) suppository 10 mg 10 mg, Rectal, One time a day prn, Starting Fri12/22/18 at 0500, Until Discontinued, constipation, Use SECOND for constipation. If patient cannot take oral medications, use first for constipation., carbohydrate 15 g 15 g, Oral, PRN per parameter, Starting Fri12/22/18 at 0533, Until Discontinued , low blood glucose, Give 15 grams of carbohydrate if blood glucose is less than 70 mg/dL, patient is responsive and able to take food or oral meds. Recheck blood glucose in 15 minutes. Repeat 1 time and call MD. If recheck is greater than 70 mg/dL and able to take food or oral meds, give 15 gram carbohydrate if meal or snack due in more than an hour. Serve meal or snack if due in less than 1 hour. See hypoglycemia treatment on cardex. Sources of 15 grams carbohydrate: a.4 oz of fruit juice or b.4 oz of soda pop (NOT diet) or c.1 tablespoon of honey, clopidogrel (PLAVIX) tablet 75 mg Given 12/23/2018 7:37 AM CDT 75 mg 75 mg, Oral, Daily, 365 doses, First dose on Fri12/23/18 at 0900, Last dose on Fri12/22/19 at 0900, Post-Procedure (Cath) dextrose 50% IV solution 50 mL 50 mL (25 g), IV, PRN per parameter, Starting Fri12/22/18 at 0533, Until Discontinued, low blood glucose, 50 mL, Give if blood glucose is less than 70 mg/dL, patient is unresponsive or NPO, and has IV access. Recheck blood glucose in 15 minutes and call MD. Repeat dose if recheck less than 70 mg/dL and call MD. If recheck is greater than 70 mg/dL and able to take food or oral meds, give 15 gram carbohydrate if meal or snack due in more than an hour. Serve meal or snack if due in less than 1 hour. See hypoglycemia treatment on cardex., dextrose chewable tablet 16 g 16 g (4 tablet), Oral, PRN per parameter, Starting Fri12/22/18 at 0533, Until Discontinued, low blood glucose, Chew before swallowing. Give 15 gram of carbohydrate if blood glucose is less than 70 mg/dL, patient is responsive and able to take food or oral meds. Recheck blood glucose in 15 minutes. Repeat 15 gram carbohydrate if recheck is less than 70 mg/dL and call MD. If recheck is greater than 70 mg/dL and able to take food or oral meds, give 15 gram carbohydrate if meal or snack due in more than an hour. Serve meal or snack if due in less than 1 hour. See hypoglycemia treatment on cardex. (Sources of 15 gram carbohydrate: 4 oz fruit juice or 4 oz soda pop (NOT diet) or 1 tablespoonful honey or 4 glucose tablets )., docusate sodium (THEREVAC-SB MINI;ENEMEEZ MINI) 283 MG enema 1 enema 1 enema, Rectal, One time a day prn, Starting Fri12/22/18 at 0500, Until Discontinued, constipation, Use THIRD for constipation - if no BM 8 hours after ducolax suppository. If patient cannot take oral medications, use second for constipation., glipiZIDE (GLUCOTROL) tablet 5 mg Given 12/23/2018 7:37 AM CDT 5 mg 5 mg, Oral, Two times a day with meals, First dose on Fri12/22/18 at 1730, Until Discontinued Given 12/22/2018 6:45 PM CDT 5 mg glucagon for injection 1 mg vial 1 mg 1 mg, Intramuscular, PRN per parameter, Starting Fri12/22/18 at 0533, Until Discontinued, low blood glucose, Give if blood glucose less than 70 mg/dL, patient is unresponsive or NPO, and has no IV access. Establish IV access. Recheck blood glucose in 15 minutes and call MD. If recheck is greater than 70 mg/dL and able to take food or oral meds, give 15 gram carbohydrate if meal or snack due in more than an hour. Serve meals or snack if due in less than 1 hour. See hypoglycemia treatment on cardex. Reconstitute vial with 1 mL of sterile water for injection for reconstitution for a final concentration of 1 mg/mL. Shake vial gently. Use immediately and discard unused portion. Reconstitute with 1 mL of sterile water for injection to yield 1 mg/mL. Shake vial gently. Use immediately and discard unused portion., insulin aspart (NovoLOG) SQ correction Given 12/23/2018 11:26 AM CDT 2 Units scale (Adult) 2-8 Units, Subcutaneous, Three times a day, First dose on Fri12/22/18 at 0730, Until Discontinued, 0.08 mL, Patient is NPO LOW DOSE insulin aspart (NovoLOG) subcutaneous correction scale Blood Glucose=Insulin Dose 150-199 2 units 200-249 3 units 250-299 5 units 300-349 7 units Over 349 8 units, Given 12/23/2018 7:37 AM CDT 2 Units Abdominal Tissue Given 12/22/2018 1:04 PM CDT 3 Units lisinopril (PRINIVIL, ZESTRIL) tablet 2.5 mg Given 12/23/2018 9:24 AM CDT 2.5 mg 2.5 mg, Oral, Daily, First dose on Fri12/23/18 at 0900, Until Discontinued, Hold for SBP less than 100, melatonin tablet 3 mg 3 mg, Oral, Bedtime prn, Starting Fri12/22/18 at 0500, Until Discontinued, other (Specify), insomnia, If inadequate response in 60 minutes, may proceed to next choice option or, if no other options, contact provider., metoprolol tartrate (LOPRESSOR) tablet 25 mg Given 12/23/2018 7:37 AM CDT 25 mg 25 mg, Oral, Two times a day, First dose on Fri12/22/18 at 0900, Until Discontinued Given 12/22/2018 9:49 PM CDT 25 mg Given 12/22/2018 6:12 AM CDT 25 mg morphine injection solution (conc: 2 mg/mL) 2 Given 12/22/2018 5:50 AM CDT 2 mg mg 2 mg, IV, Every five minutes prn, 3 doses, Starting Fri12/22/18 at 0457, Until Discontinued, other (Specify), chest pain, 1 mL, Administer morphine SECOND for chest pain (if nitroglycerin does not resolve pain or if SBP is less than 90 mmHg). Notify provider if administered, nitroglycerin (NITROSTAT) sublingual tablet 0.4 mg 0.4 mg, Sublingual, Every five minutes prn, Starting Fri12/22/18 at 0840, Until Discontinued, chest pain, Post-Procedure (Cath), At onset of chest pain, dissolve one tablet under tongue. May repeat every 5 minutes for 3 doses. Do not crush or chew., rosuvastatin (CRESTOR) tablet 20 mg Given 12/22/2018 9:49 PM CDT 20 mg 20 mg, Oral, Bedtime, First dose on Fri12/22/18 at 2100, Until Discontinued senna-docusate sodium (SENOKOT-S;PERICOLACE) tablet 2 tablet 2 tablet, Oral, Two times a day prn, Starting Fri12/22/18 at 0500, Until Discontinued, constipation, Use FIRST for constipation unless patient cannot take oral medications., SITagliptin (JANUVIA) tablet 50 mg 50 mg, Oral, Daily, First dose on Fri12/24/18 at 0900, Until Discontinued sodium chloride 0.9% IV solution New Bag 12/22/2018 5:56 PM CDT 50 mL/hr IV, at 50 mL/hr, Continuous, Starting Fri12/22/18 at 0500, Until Discontinued, 1,000 mL Already Infusing 12/22/2018 12:23 PM CDT 50 mL/hr New Bag 12/22/2018 5:05 AM CDT 50 mL/hr Medication Order MAR Action Action Date Dose Rate Site adenosine (ADENOSCAN) 24 mcg/mL Given 12/22/2018 7:54 AM CDT 240 mcg solution (INTRA-CORONARY) 0-240 mcg 0-240 mcg, Intra-arterial, Administer in Cardiac Sheeter Operator, 1 dose, Fri12/22/18 at 0750, 10 mL, Under the direction of the provider in CCL. Do not give on the floor., Given 12/22/2018 7:51 AM CDT 240 mcg aspirin tablet 325 mg Given 12/22/2018 7:26 AM CDT 325 mg 325 mg, Oral, Administer in Cardiac Sheeter Operator, 1 dose, Fri12/22/18 at 0715, Under the direction of the provider in CCL. Do not give on the floor., clopidogrel (PLAVIX) tablet 75-600 mg Given 12/22/2018 8:01 AM CDT 600 mg 75-600 mg, Oral, Administer in Cardiac Sheeter Operator, 1 dose, Fri12/22/18 at 0805, Under the direction of the provider in CCL. Do not give on the floor., fentaNYL 250 mcg/5 mL preservative free Given 12/22/2018 7:30 AM CDT 50 mcg injection solution 12.5-300 mcg 12.5-300 mcg, IV, Administer in Cardiac Sheeter Operator, 1 dose, Fri12/22/18 at 0715, 10 mL, Under the direction of the provider in CCL. Do not give on the floor. For cardiac catheterization sedation under direction provider privileged to perform sedation., hEParin (50 units/mL) in D5W New Bag 12/22/2018 4:10 AM 15 Units/kg/hr 32.4 mL/hr premixed IV solution CDT (STANDARD-weight based) 0-50 Units/kg/hr 108 kg (0-108 mL/hr), IV, at 0-108 mL/hr, Titrate, Starting Fri12/22/18 at 0405, Until Fri12/22/18 at 0800, 500 mL, Start initial infusion at 15 units/kg/hr. Notify physician if initial infusion exceeds 1,500 units/hr. Adjust heparin infusion based on sliding scale: * aPTT less than 60 sec ------ Give 70 units/kg IV bolus and add 4 units/kg/hr to current rate * aPTT 60-69.9 sec Give 35 units/kg IV bolus and add 2 units/kg/hr to current rate * aPTT 70-120.9 sec No change (therapeutic) * aPTT 121-135.9 sec Subtract 2 units/kg/hr from current rate * aPTT 136-149.9 sec --------- Hold heparin for 1 hour and subtract 3 units/kg/hr from current rate * aPTT 150 sec or greater - Redraw STAT aPTT and hold heparin. Draw hourly aPTT using routine specified time until less than 150 sec, then restart heparin infusion at 3 units/kg/hr less than the previous rate, give NO BOLUS and resume every 6 hour aPTT. AFTER PROCEDURE: When restarting infusion after it's been held for a procedure, restart infusion at "starting" dose of 15 units/kg/hr and follow titration orders. IF infusion was running at less than 15 units/kg/hr prior to procedure, restart at that rate and follow titration orders., heparin (porcine) injection solution Given 12/22/2018 7:43 AM CDT 4,000 Units 0-12,000 Units 0-12,000 Units, IV, Administer in Cardiac Sheeter Operator, 1 dose, Fri12/22/18 at 0715, 12 mL, Under the direction of the provider in CCL. Do not give on the floor., iohexol (OMNIPAQUE) 350 mg/mL solution 130 Given 12/22/2018 8:06 AM CDT 130 mL mL 130 mL, Intra-arterial, One time, 1 dose, Fri12/22/18 at 0810, 150 mL lidocaine PF (XYLOCAINE-MPF) 1 % preservative Given 12/22/2018 7:30 AM CDT 2 mL free injection solution 0-40 mL 0-40 mL, Subcutaneous, Administer in Cardiac Sheeter Operator, 1 dose, Fri12/22/18 at 0715, 60 mL, Given by provider in CCL. Do not give on the floor., midazolam (VERSED) injection solution 0.5-10 Given 12/22/2018 7:31 AM CDT 2 mg mg 0.5-10 mg, IV, Administer in Cardiac Sheeter Operator, 1 dose, Fri12/22/18 at 0715, 10 mL, For cardiac catheterization sedation under direction provider privileged to perform sedation. Do not give on the floor., nitroglycerin (100 mcg/mL) in NS Given 12/22/2018 7:50 AM CDT 2 mL 0-6 mL (0-600 mcg), Intracardiac, Administer in Cardiac Sheeter Operator, 1 dose, Fri12/22/18 at 0755, 10 mL, Given by provider in CCL. Do not give on the floor., nitroglycerin (400 mcg/mL) Rate Change 12/22/2018 5:47 AM 100 mcg/min 15 mL/hr in D5W IV solution (premix) CDT 5-100 mcg/min (0.75-15 mL/hr, rounded to 0.8-15 mL/hr), IV, at 0.8-15 mL/hr, Titrate, Starting Fri12/22/18 at 0530, Until Fri12/22/18 at 0800, 250 mL, For ADULT patients: Initiate infusion at 10 mcg/minute. For angina: Increase infusion by 5 mcg/minute every 5 minutes to 20 mcg/minute; if angina pain is not controlled at 20 mcg/minute, increase by 10 mcg/minute every 5 minutes until angina pain is controlled up to a max dose of 100 mcg/min. Notify physician if angina pain is not controlled with an infusion rate of 100 mcg/min. Do not increase the infusion rate if SBP less than 90 or MAP less than 60 mmHg. When discontinuing or weaning, decrease the infusion by 10 mcg/min every 15 minutes as tolerated to avoid hypertension and angina. Document titrations in One Chart (MAR or I&O Flowsheet medication group)., Rate Change 12/22/2018 5:38 AM CDT 90 mcg/min 13.5 mL/hr Rate Change 12/22/2018 5:32 AM CDT 80 mcg/min 12 mL/hr ondansetron (ZOFRAN) injection solution 0-4 mg Given 12/22/2018 7:41 AM CDT 4 mg 0-4 mg, IV, Administer in Cardiac Sheeter Operator, 1 dose, Fri12/22/18 at 0745, 2 mL, Under the direction of the provider in CCL. Do not give on the floor. If preference is to further dilute for IV administration: First draw up patient-specific dose, then dilute to 10 mL with 0.9% sodium chloride., SITagliptin (JANUVIA) tablet 25 mg Given 12/23/2018 7:37 AM CDT 25 mg 25 mg, Oral, Daily, First dose on Fri12/23/18 at 0900, Until Discontinued sodium chloride 0.9% IV Already Infusing 12/22/2018 8:52 AM CDT 150 mL/ hr solution IV, at 150 mL/hr, Continuous, Starting Fri12/22/18 at 0930, Until Fri12/22/18 at 1129, 1,000 mL, Post-Procedure (Cath) verapamil-hEParin in normal saline (radial Given 12/22/2018 7:31 AM CDT cocktail) Intra-arterial, Administer in Cardiac Sheeter Operator, 1 dose, Fri12/22/18 at 0715, 10 mL, Under the direction of the provider in CCL. Do not give on the floor., documented in this encounter
== END 2018-12-22 02:15 ==
LOC: LL.ED 00:25
DX: I21.4 Non-ST elevation (NSTEMI) myocardial infarction (principal); Z88.0 Allergy status to penicillin; Z88.8 Allergy status to other drugs, medicaments and biological substances
CPT/HCPCS: 36415; 71045; 80053; 82550; 82553; 83605; 83735; 83880; 84443; 84484; 85025; 85379; 85610; 85730; 96365; 96375; 99285-25; A9270-GY; C9113; J1644; J7030

== ENCOUNTER 2020-06-15 18:40 | Emergency (ER) | payer OTHER ==
[2020-06-15] MEDS ORDERED: Ticagrelor 90 MG Tab PO ONE (18:41)
[2020-06-15] MEDS ORDERED: Famotidine 20 MG/2 ML SDV IVPUSH ONE (18:41)
[2020-06-15] MEDS ORDERED: Aspirin 81 MG Tab.Chew CHEW ONE (18:41)
[2020-06-15] MEDS ORDERED: Metoprolol Tartrate 5 MG/5 ML SDV IVPUSH ONE (18:41)
[2020-06-15] MEDS: Sodium Chloride 0.9% 10 ML Syringe FLUSH PRN ×2 (18:56→19:01)
[2020-06-15] MEDS ORDERED: Nitroglycerin 0.4 MG Tab.SL SL ONE ×2 (19:03→19:15)
[2020-06-15] MEDS ORDERED: Nitroglycerin 0.4 MG Tab.SL ONE (19:04)
[2020-06-15 19:05] LABS: PTT,PARTIAL THROMBOPLSTIN TIME 23.2 SEC (24.5-32.8)
[2020-06-15 19:12] LABS: CHLORIDE,CL 103 mmol/L (98-107); SODIUM,NA 139 mmol/L (136-145)
[2020-06-15] MEDS ORDERED: GI Cocktail Oral Solution 30 ML PO ONE (19:31)
[2020-06-15] MEDS ORDERED: Iopamidol 755 Mg/ML 100 ML Bottle IVPUSH STA (19:36)
--- NOTE | 2020-06-15 20:24 | EDM.PDOC ---
ED HPI GENERAL MEDICAL PROBLEM - General Chief Complaint: Chest Pain Stated Complaint: chest pain Time Seen by Provider: 06/15/20 18:40 Source of Information: Reports: Patient, Old Records ([facility] chart/EMR) History Limitations: Reports: No Limitations - History of Present Illness INITIAL COMMENTS - FREE TEXT/NARRATIVE: The patient drove himself to the emergency room via private automobile for evaluation of 11/21 sharp right-sided retrosternal chest pain associated with left arm paresthesia, heart flutter, dyspnea and dizziness with symptoms starting at about 2:30 PM this afternoon. He did have his second COVID-19 immunization earlier this morning with no other significant reaction to this immunization. The patient denies any chest pressure, orthostasis, orthopnea, diaphoresis, paresthesias, recent decreased exercise tolerance, or any other anginal-type symptoms. No recent history of abdominal pain, heartburn, nausea, diarrhea, melena, gross hematochezia, or any food intolerance, including fatty foods, etc., although his bowel movement this morning was somewhat dark in nature. He denies any gross hematuria, colic, or other UTI symptoms. The patient also denies any recent fever, wheezing, etc. with stable chronic cough secondary to COPD. Onset: Gradual Onset Date: 06/15/20 Onset Time: 14:30 Duration: Constant, Getting Worse Location: Reports: Chest, Upper Extremity, Left, Radiates to (As above). Denies: Head, Face, Neck, Abdomen, Back, Pelvis, Upper Extremity, Right Quality: Reports: Same as Previous Episode, Sharp Severity: Moderate Improves with: Reports: None Worsens with: Reports: None Associated Symptoms: Reports: Chest Pain, Cough (As above), Shortness of Breath. Denies: Confusion, cough w sputum, Diaphoresis, Fever/Chills, Headaches, Loss of Appetite, Malaise, Nausea/Vomiting, Rash, Syncope, Weakness Treatments GLASS ENAMEL MIXER: Reports: Other (see below) (None) chest pressure Pain Score (Numeric/FACES): 8 - Related Data Allergies Allergy/AdvReac Type Severity Reaction Status Date / Time Penicillins Allergy Cannot Verified 06/15/20 18:40 Remember Home Meds: Home Meds glipiZIDE [Glipizide ER] 5 mg PO BIDMEALS 12/22/18 [History] Aspirin [Quynh Chewable] 81 mg PO DAILY 06/15/20 [History] Clopidogrel [Plavix] 75 mg PO DAILY 06/15/20 [History] Nitroglycerin 0.4 mg SL ASDIRECTED PRN 06/15/20 [History] Rosuvastatin Calcium 20 mg PO DAILY 06/15/20 [History] lisinopriL [Lisinopril] 2.5 mg PO DAILY 06/15/20 [History] sitaGLIPtin Phosphate [Januvia] 50 mg PO DAILY 06/15/20 [History] Past Medical History HEENT History: Reports: Hard of Hearing, Impaired Vision. Denies: Allergic Rhinitis, Cataract, Epistaxis, Glaucoma, Macular Degeneration, Otitis Media, Retinal Detachment, Sinusitis Other HEENT History: No history of diabetic retinopathy. The patient does wear glasses. Bilateral hearing loss with bilateral hearing aids. Cardiovascular History: Reports: Arrhythmia, CAD, High Cholesterol, Hypertension, AL, PTCA, Stents, Syncope, Other (See Below). Denies: Afib, Aneurysm, Blood Clots/VTE/DVT, Heart Failure, Heart Murmur, Pacemaker, PVD Other Cardiovascular History: History of non-STEMI on 12/22/2018. PVCs. History of recurrent syncope of unknown etiology. Respiratory History: Reports: COPD, Intubation, Previous. Denies: Asthma, Bronchitis, Recurrent, Intubation, Difficult, PE, Pneumonia, Recurrent, Pneumothorax, Sleep Apnea, TB Gastrointestinal History: Reports: Colon Polyp. Denies: Celiac Disease, Cholelithiasis, Chronic Constipation, Chronic Diarrhea, Fatty Liver, Fecal Incontinence, Gastritis, GERD, GI Bleed, Hepatitis, Hiatal Hernia, Inflammatory Bowel Disease, Irritable Bowel Syndrome, Jaundice, Pancreatitis, PUD Genitourinary History: Reports: BPH. Denies: Acute Renal Failure, Chronic Renal Insuffiency, Diabetic Nephropathy, Renal Calculus, STD, Urinary Incontinence, UTI, Recurrent Musculoskeletal History: Reports: Arthritis, Back Pain, Chronic, Fracture, Neck Pain, Chronic, Osteoarthritis, Other (See Below). Denies: Gout, Osteoporosis, RA, SLE Other Musculoskeletal History: Left wrist fracture at age 6. Left ankle fracture at age 10. Neurological History: Reports: CVA, Other (See Below). Denies: Alzheimers Disease, Cerebral Aneurysms, Concussion, Headaches, Chronic, Head Trauma, Migraines, MS, Neuropathy, Diabetic, Neuropathy, Peripheral, Parkinson's, Seizure, TIA, Vertigo Other Neuro History: Right-sided CVA with secondary left hemiparesis treated with TPA in this facility on 12/24/2011. No permanent sequelae from his CVA. Psychiatric History: Reports: Addiction, Anxiety, Depression, Other (See Below). Denies: Abuse, Victim of, ADD, ADHD, Alzheimers Disease, Dementia, Psych Hospitalization(s), PTSD, Suicide Attempt, Suicidal Ideation Other Psychiatric History: Previous history of possible alcohol abuse, which the patient denies. No previous alcohol treatment. Endocrine/Metabolic History: Reports: Diabetes, Type II, Obesity/BMI 30+. Denies: Diabetes, Type I, Diabetes Mellitus, Type 3c, IDDM, Osteopenia, Os teoporosis Hematologic History: Reports: None. Denies: Anemia, Blood Transfusion(s), Iron Deficiency Immunologic History: Reports: None. Denies: AIDS, HIV, SLE Oncologic (Cancer) History: Reports: None. Denies: Basal Cell Carcinoma, Colon, Hodgkin's Lymphoma, Leukemia, Lymphoma, Malignant Melanoma, Non-Hodgkin's Lymphoma, Prostate, Squamous Cell Carcinoma Dermatologic History: Denies: Eczema, Psoriasis - Infectious Disease History Infectious Disease History: Reports: None. Denies: C-Difficile, Chicken Pox, Measles, Meningitis, Mononucleosis, MRSA, Mumps, Novel Coronavirus, Pertussis (Whooping Cough), Rheumatic Fever, Rubella, Scarlet Fever, Shingles, TB, VRE - Past Surgical History Head Surgeries/Procedures: Reports: None HEENT Surgical History: Reports: Oral Surgery, Other (See Below). Denies: Adenoidectomy, Cataract Surgery, Eye Surgery, Laser Surgery, LASIK, Myringotomy w Tube(s), Naso-Sinus Surgery, Tonsillectomy Other HEENT Surgeries/Procedures: Complete teeth extraction with the patient not tolerating dentures. Cardiovascular Surgical History: Reports: Coronary Artery Stent, Percutaneous Transluminal Angioplasty, Other (See Below). Denies: Varicose Other Cardiovascular Surgeries/Procedures: PTCA/stent times one of the right coronary artery on 12/23/2018. Respiratory Surgical History: Reports: None. Denies: Thoracentesis GI Surgical History: Reports: Appendectomy, Bariatric Procedure, Colonoscopy, EGD, Other (See Below). Denies: Cholecystectomy, Hernia, Abdominal, Hernia, Inguinal, Hernia Repair/Other, Polypectomy Other GI Surgeries/Procedures: Gastric bypass in about 2000. Appendectomy at age 5. Colonoscopy in about 2018. EGD in about 2004. Male Surgical History: Denies: Circumcision, TURP-Transurethral Resection of Prostate, Vasectomy Endocrine Surgical History: Reports: None Neurological Surgical History: Reports: None. Denies: C-Spine, Discectomy, Laminectomy, Lumbar Spine, Sacral Spine, Spinal Fusion, Thoracic Spine, Vertebroplasty Musculoskeletal Surgical History: Reports: None. Denies: Amputation, Arthroscopic Procedure, Carpal Tunnel, Ganglion Cyst, Joint Replacement, ORIF, Shoulder Surgery Oncologic Surgical History: Reports: None Dermatological Surgical History: Reports: Other (See Below) Other Dermatological Surgeries/Procedures: Excision of benign cyst from the left inguinal region in March 2020. Social & Family History - Family History Cardiac: Reports: CAD, AL, Other (See Below) Other Cardiac Family History: Brother and father with history of fatal MIs. - Tobacco Use Tobacco Use Status *Q: Current Every Day Tobacco User Tobacco Use Within Last Twelve Months: Cigarettes Years of Tobacco use: 41 Packs/Tins Daily: 1 Packs/Tins Daily Comment: Started smoking at age 13 with maximum use of 3 packs/day. Used Tobacco, but Quit: No Smoking Cessation Information Provided To Patient: Yes Second Hand Smoke Exposure: No Second Hand Smoke Education Provided: No - Caffeine Use Caffeine Use: Reports: Coffee (12 cups/day), Soda (1 soda every other day). Denies: Energy Drinks, Tea - Alcohol Use Alcohol Use History: Yes Days Per Week of Alcohol Use: 0 Number of Drinks Per Day: 12 Number of Drinks Per Day Comment: Usually beer about 23 times per year. Possible history of alcohol abuse per medical records, which the patient denies. No previous DWIs, alcohol treatment, etc. 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 ED EXAM, GENERAL - Physical Exam Exam: See Below Exam Limited By: No Limitations General Appearance: Alert, WD/WN, No Apparent Distress, Anxious (Mild) Eye Exam: Bilateral Eye: EOMI, Normal Inspection (Patient is wearing glasses. No vertigo or nystagmus), PERRL Ears: Normal External Exam, Normal Canal, Hearing Grossly Normal, Normal TMs Nose: Normal Inspection, Normal Mucosa, No Blood Throat/Mouth: Normal Lips, Normal Gums, No Airway Compromise. No: Normal Teeth (Complete absent dentition with the patient not using dentures), Normal Oropharynx, Normal Voice, Dysphagia, Inflammation, Perioral Cyanosis Head: Atraumatic, Normocephalic. No: Facial Swelling, Facial Tenderness, Sinus Tenderness Neck: Normal Inspection, Supple, Non-Tender, Full Range of Motion. No: Carotid Bruit, Lymphadenopathy (L), Lymphadenopathy (R), Thyromegaly Respiratory/Chest: No Respiratory Distress, Lungs Clear, Normal Breath Sounds, No Accessory Muscle Use, Chest Non-Tender. No: Pleural Rub, Retractions Cardiovascular: Normal Peripheral Pulses, No Edema, No Gallop, No JVD, No Rub, Tachycardia (Regular rhythm), Systolic Murmur (1/6 DANTE of aortic and mitral valves). No: Gallop/S3, Gallop/S4, Friction Rub Peripheral Pulses: 2+: Radial (L), Radial (R), Dorsalis Pedis (L), Dorsalis Pedis (R) GI/Abdominal: Normal Bowel Sounds, Soft, Non-Tender, No Organomegaly, No Distention, No Abnormal Bruit, No Mass, Other (Obese). No: Guarding (Male) Exam: Deferred Rectal (Males) Exam: Deferred Back Exam: Normal Inspection, Full Range of Motion. No: CVA Tenderness (L), CVA Tenderness (R), Muscle Spasm Extremities: Normal Inspection, Normal Range of Motion, Non-Tender, No Pedal Edema, Normal Capillary Refill. No: Ifeoma's Sign Neurological: Alert, Oriented, CN II-XII Intact, Normal Cognition, Normal Gait, Normal Reflexes (Negative Homans), No Motor/Sensory Deficits Psychiatric: Anxious (Mild). No: Depressed Mood Skin Exam: Warm, Dry, Intact, Normal Color, No Rash, Tattoo(s). No: Diaphoretic, Wound/Incision #1 Interpretation EKG Date: 06/15/20 Time: 18:41 Rhythm: NSR Rate (Beats/Min): 104 [place]: Normal (Left cardiac axis) P-Wave: Present (Mild diffuse biphasic P waves) QRS: Wide (0.11 seconds representing repolarization changes) ST-T: Normal (T wave inversion in lead V1) QT: Normal OH/PQ Interval: 0.15 seconds with poor R wave progression in the anterior leads Comparison: NA - No Prior EKG (No post non-STEMI EKG available for comparison) EKG Interpretation Comments: 1. No acute ischemic changes 2. Repolarization changes #2 Interpretation EKG Date: 06/15/20 Time: 21:52 Rhythm: NSR Rate (Beats/Min): 78 Sterling: Normal (Left cardiac axis) P-Wave: Present (Mild diffuse biphasic P waves) QRS: Wide (0.11 seconds secondary to repolarization changes) ST-T: Normal (Stable T wave inversion lead V1 with new T wave inversion in lead V3) QT: Normal OH/PQ Interval: 0.17 seconds with poor R wave progression in anterior leads Comparison: Change From Previous EKG (As above since earlier EKG today) EKG Interpretation Comments: 1. No acute ischemic changes 2. Repolarization changes Course - Vital Signs Last Recorded V/S: Last Vital Signs Temp 36.9 C 06/15/20 21:00 Pulse 83 06/15/20 21:00 Resp 16 06/15/20 21:00 BP 155/77 H 06/15/20 21:00 Pulse Ox 97 06/15/20 21:00 Vital Signs - 24 hr 06/15/20 06/15/20 06/15/20 18:41 18:56 19:05 Temperature [ Temporal] Pulse, 99 Peripheral Pulse, Peripheral [ Right Pulse Oximetry] Respiratory Rate Blood Pressure 159/91 H 149/88 H Blood Pressure [Right Upper Arm] O2 Sat by Pulse Oximetry O2 Sat by Pulse 97 Oximetry [Room Air] 06/15/20 06/15/20 06/15/20 19:07 19:17 19:30 Temperature [ 36.3 C 36.3 C Temporal] Pulse, Peripheral Pulse, 103 H 93 Peripheral [ Right Pulse Oximetry] Respiratory 14 16 Rate Blood Pressure 149/88 H Blood Pressure 175/83 H 154/78 H [Right Upper Arm] O2 Sat by Pulse 100 98 Oximetry O2 Sat by Pulse Oximetry [Room Air] 06/15/20 06/15/20 06/15/20 20:00 20:30 21:00 Temperature [ 36.9 C Temporal] Pulse, Peripheral Pulse, 87 84 83 Peripheral [ Right Pulse Oximetry] Respiratory 18 18 16 Rate Blood Pressure Blood Pressure 136/76 124/68 155/77 H [Right Upper Arm] O2 Sat by Pulse 99 99 97 Oximetry O2 Sat by Pulse Oximetry [Room Air] - Orders/Labs/Meds Orders: Active Orders 24 hr Category Date Time Status Cardiac Monitoring [RC] . DIRECTED Care 06/15/20 18:41 Active EKG Documentation Completion [RC] ASDIRECTED Care 06/15/20 18:41 Active Oxygen Therapy, ED [RC] PRN Care 06/15/20 18:41 Active Peripheral IV Care [RC] . DIRECTED Care 06/15/20 18:41 Active Pulse Oximetry [RC] CONTINUOUS Care 06/15/20 18:41 Active Up With Assistance [RC] PFP Care 06/15/20 18:41 Active Vital Signs [RC] PFP Care 06/15/20 18:41 Active Nothing per Oral Now Diet [DIET] Diet 06/15/20 Breakfast Active Chest 1V Frontal [CR] Stat Exams 06/15/20 18:41 Taken Chest PE [Ang Chest] [CT] Stat Exams 06/15/20 19:31 Taken Sodium Chloride 0.9% [Saline Flush] Med 06/15/20 18:41 Active 10 ml FLUSH ASDIRECTED PRN Obtain Past Medical Record [OM.PC] Urgent Oth 06/15/20 18:41 Active Peripheral IV Insertion Adult [OM.PC] Stat Oth 06/15/20 18:41 Ordered Resuscitation Status Stat Resus Stat 06/15/20 18:41 Ordered Medication Orders Sodium Chloride (Saline Flush) 10 ml FLUSH ASDIRECTED PRN PRN Reason: Keep Vein Open Last Admin: 06/15/20 19:01 Dose: 10 ml Documented by: Admin: 06/15/20 18:56 Dose: 10 ml Documented by: HOWARD Labs: Laboratory Tests 06/15/20 06/15/20 06/15/20 Range/Units 18:40 18:40 18:40 WBC 11.6 H (4.0-10.2) K/uL RBC 4.88 (4.33-5.41) M/uL Hgb 14.3 (13.1-16.8) g/dL Hct 42.2 (39.0-49.0) % MCV 86.5 (84.0-98.0) fL MCH 29.3 (28.2-33.3) pg MCHC 33.9 (31.7-36.0) g/dL RDW 15.6 H (11.2-14.1) % Plt Count 264 (150-350) K/uL Neut % (Auto) 69.4 (45.0-80.0) % Lymph % (Auto) 20.9 (10.0-50.0) % [place] % (Auto) 6.7 (2.0-14.0) % Eos % (Auto) 2.4 (0.0-5.0) % Baso % (Auto) 0.6 (0.0-2.0) % Neut # (Auto) 8.05 H (1.40-7.00) K/uL Lymph # (Auto) 2.43 (0.50-3.50) K/uL [place] # (Auto) 0.78 (0.00-1.00) K/uL Eos # (Auto) 0.28 (0.00-0.50) K/uL Baso # (Auto) 0.07 (0.00-0.20) K/uL PT 9.9 (9.5-12.0) SEC INR 1.0 APTT 23.2 L (24.5-32.8) SEC D-Dimer, Quantitative 756 H (0-400) ng/mL Sodium (136-145) mmol/L Potassium (3.5-5.1) mmol/L Chloride (98-107) mmol/L Carbon Dioxide (21.0-32.0) mmol/L BUN (7-18) mg/dL Creatinine (0.51-1.17) mg/dL Est Cr Clr Drug Dosing Estimated GFR (MDRD) mL/min Glucose (70-99) mg/dL Lactic Acid (0.4-2.0) mmol/L Uric Acid (2.6-7.2) mg/dL Calcium (8.5-10.1) mg/dL Magnesium (1.8-2.4) mg/dL Total Bilirubin (0.2-1.0) mg/dL AST (15-37) U/L ALT (12-78) U/L Alkaline Phosphatase (46-116) IU/L Creatine Kinase (26-308) U/L Creatine Kinase Index (0.0-2.5) % CK-MB (CK-2) (0.00-3.60) ng/mL Troponin I (0.000-0.056) ng/mL NT-Pro-B Natriuret Pep (0-125) pg/mL Total Protein (6.4-8.2) g/dL Albumin (3.4-5.0) g/dL TSH, Ultra Sensitive (0.358-3.740) mIU/mL SARS-CoV-2 Ag (Rapid) 06/15/20 06/15/20 06/15/20 Range/Units 18:40 18:40 19:40 WBC (4.0-10.2) K/uL RBC (4.33-5.41) M/uL Hgb (13.1-16.8) g/dL Hct (39.0-49.0) % MCV (84.0-98.0) fL MCH (28.2-33.3) pg MCHC (31.7-36.0) g/dL RDW (11.2-14.1) % Plt Count (150-350) K/uL Neut % (Auto) (45.0-80.0) % Lymph % (Auto) (10.0-50.0) % [place] % (Auto) (2.0-14.0) % Eos % (Auto) (0.0-5.0) % Baso % (Auto) (0.0-2.0) % Neut # (Auto) (1.40-7.00) K/uL Lymph # (Auto) (0.50-3.50) K/uL [place] # (Auto) (0.00-1.00) K/uL Eos # (Auto) (0.00-0.50) K/uL Baso # (Auto) (0.00-0.20) K/uL PT (9.5-12.0) SEC INR APTT (24.5-32.8) SEC D-Dimer, Quantitative (0-400) ng/mL Sodium 139 (136-145) mmol/L Potassium 4.4 (3.5-5.1) mmol/L Chloride 103 (98-107) mmol/L Carbon Dioxide 24.1 (21.0-32.0) mmol/L BUN 15 (7-18) mg/dL Creatinine 1.15 (0.51-1.17) mg/dL Est Cr Clr Drug Dosing TNP Estimated GFR (MDRD) > 60 mL/min Glucose 208 H (70-99) mg/dL Lactic Acid 1.5 (0.4-2.0) mmol/L Uric Acid 4.6 (2.6-7.2) mg/dL Calcium 8.6 (8.5-10.1) mg/dL Magnesium 1.9 (1.8-2.4) mg/dL Total Bilirubin 0.5 (0.2-1.0) mg/dL AST 29 (15-37) U/L ALT 39 (12-78) U/L Alkaline Phosphatase 100 (46-116) IU/L Creatine Kinase 679 H (26-308) U/L Creatine Kinase Index 0.3 (0.0-2.5) % CK-MB (CK-2) 1.80 (0.00-3.60) ng/mL Troponin I 0.007 (0.000-0.056) ng/mL NT-Pro-B Natriuret Pep 50 (0-125) pg/mL Total Protein 7.8 (6.4-8.2) g/dL Albumin 4.4 (3.4-5.0) g/dL TSH, Ultra Sensitive 2.256 (0.358-3.740) mIU/mL SARS-CoV-2 Ag (Rapid) Cancelled Negative Meds: Medications Generic Name Dose Route Start Last Admin Trade Name Freq PRN Reason Stop Dose Admin Sodium Chloride 10 ml 06/15/20 18:41 06/15/20 19:01 Saline Flush FLUSH 10 ml ASDIRECTED PRN Administration Keep Vein Open Discontinued Medications Generic Name Dose Route Start Last Admin Trade Name Freq PRN Reason Stop Dose Admin Al Hydroxide/Mg Hydroxide 30 ml 06/15/20 19:31 06/15/20 19:37 Gi Cocktail PO 06/15/20 19:32 30 ml ONETIME ONE Administration Aspirin 324 mg 06/15/20 18:41 06/15/20 18:53 Aspirin CHEW 06/15/20 18:42 324 mg ONETIME ONE Administration Enoxaparin Sodium 100 mg 06/15/20 21:09 06/15/20 21:11 Lovenox SUBCUT 06/15/20 21:10 100 mg ONETIME ONE Administration Famotidine 40 mg 06/15/20 18:41 06/15/20 19:01 Pepcid IVPUSH 06/15/20 18:42 40 mg ONETIME ONE Administration Iopamidol 100 ml 06/15/20 19:36 06/15/20 20:01 Isovue-370 (76%) IVPUSH 06/15/20 19:37 100 ml ONETIME STA Administration Metoprolol Tartrate 2.5 mg 06/15/20 18:41 06/15/20 18:56 Lopressor IVPUSH 06/15/20 18:42 2.5 mg ONETIME ONE Administration Morphine Sulfate 2 mg 06/15/20 20:57 06/15/20 21:01 Morphine IVPUSH 06/15/20 20:58 2 mg ONETIME ONE Administration Nitroglycerin 0.4 mg 06/15/20 19:03 06/15/20 19:05 Nitrostat SL 06/15/20 19:04 0.4 mg ONETIME ONE Administration Nitroglycerin Confirm 06/15/20 19:04 06/15/20 19:14 Nitrostat Administered 06/15/20 19:05 Not Given Dose 0.4 mg .ROUTE .STK-MED ONE Nitroglycerin 0.4 mg 06/15/20 19:15 06/15/20 19:17 Nitrostat SL 06/15/20 19:16 0.4 mg ONETIME ONE Administration Ondansetron HCl 4 mg 06/15/20 20:57 06/15/20 21:01 Zofran IVPUSH 06/15/20 20:58 4 mg ONETIME ONE Administration Ticagrelor 180 mg 06/15/20 18:41 06/15/20 18:57 Brilinta PO 06/15/20 18:42 180 mg ONETIME ONE Administration - Radiology Interpretation Free Text/Narrative:: bus monitor initially showed sinus tachycardia in the 110s with improvement to the 70s-80s after IV Lopressor was given. No ectopy or arrhythmia Chest x-ray, portable, shows mild to moderate COPD changes with no evidence of cardiomegaly, CHF, pulmonary infiltrates, pneumothorax, etc. CTA of the chest using PE protocol was negative for PE. Preliminary verbal report was not received from [place] radiology department despite our previous request. Departure - Departure Time of Disposition: 22:00 Disposition: DC/Tfer to [facility] 02 Reason for Transfer *Q: Other (Cardiology consultation) Condition: Good Clinical Impression: D-dimer, elevated, Elevated CK, Tobacco abuse counseling, Mixed anxiety and depressive disorder, Cardiac murmur, PVCs (premature ventricular contractions) Chest pain Qualifiers: Chest pain type: precordial pain Qualified Code(s): R07.2 - Precordial pain COPD (chronic obstructive pulmonary disease) Qualifiers: COPD type: emphysema Emphysema type: panlobular Qualified Code(s): J43.1 - Panlobular emphysema Hypertension Qualifiers: Hypertension type: essential hypertension Qualified Code(s): I10 - Essential (primary) hypertension Hyperlipidemia Qualifiers: Hyperlipidemia type: unspecified Qualified Code(s): E78.5 - Hyperlipidemia, unspecified Diabetes mellitus Qualifiers: Diabetes mellitus type: type 2 Diabetes mellitus chcf insulin use: without rodent exterminator use Diabetes mellitus complication status: without complication Qualified Code(s): E11.9 - Type 2 diabetes mellitus without complications Leukocytosis Qualifiers: Leukocytosis type: bandemia Qualified Code(s): D72.825 - Bandemia Referrals: PCP,None [Primary Care Provider] - Forms: ED Department Discharge, Interfacility Transfer [facility] Sepsis Event Note (ED) - Evaluation Sepsis Screening Result: No Definite Risk - Focused Exam Vital Signs: Vital Signs Temp Pulse Pulse Resp BP BP Pulse Ox 06/15/20 21:00 36.9 C 83 16 155/77 H 97 06/15/20 20:30 84 18 124/68 99 06/15/20 20:00 87 18 136/76 99 06/15/20 19:30 36.3 C 93 16 154/78 H 98 06/15/20 19:17 149/88 H 06/15/20 19:07 36.3 C 103 H 14 175/83 H 100 06/15/20 19:05 149/88 H 06/15/20 18:56 99 159/91 H 06/15/20 18:41 Pulse Ox 06/15/20 21:00 06/15/20 20:30 06/15/20 20:00 06/15/20 19:30 06/15/20 19:17 06/15/20 19:07 06/15/20 19:05 06/15/20 18:56 06/15/20 18:41 97 - Problem List & Annotations (1) Chest pain SNOMED Code(s): 54226766 Code(s): R07.9 - CHEST PAIN, UNSPECIFIED Status: Acute Current Visit: Yes Onset Date: 06/15/20 Annotation/Comment:: Initial telephone consultation at 8:[address] Paula, hospitalist at the [facility], who gives us permission to transfer the patient to another facility secondary to his persistent chest pain. Subsequent telephone consultation at [address] Hess, hospitalist at [facility], who does accept the patient for direct admission with no further treatment recommendations given. Secondary to his persistent chest pain and previous history as above he is in agreement to subc utaneous Lovenox therapy prior to discharge at the 1 mg/kg dose. His vital signs and clinical exam were otherwise stable at time of discharge. Note history of previous non-STEMI and PTCA/stent as above. Chest pain protocol was initiated immediately upon patient's arrival to the emergency room. His chest pain did remain refractory to aggressive therapy as above, including IV Pepcid, green lizard, nitroglycerin tablets x2, and IV morphine. EKGs x2, including immediately prior to patient transfer, were negative for acute AL. Qualifiers: Chest pain type: precordial pain Qualified Code(s): R07.2 - Precordial pain (2) COPD (chronic obstructive pulmonary disease) SNOMED Code(s): 31448002 Code(s): J44.9 - CHRONIC OBSTRUCTIVE PULMONARY DISEASE, UNSPECIFIED Status: Chronic Priority: Medium Current Visit: Yes Annotation/Comment:: No recent fever bronchitic type symptoms. Qualifiers: COPD type: emphysema Emphysema type: panlobular Qualified Code(s): J43.1 - Panlobular emphysema (3) D-dimer, elevated SNOMED Code(s): 357006456 Code(s): R79.89 - OTHER SPECIFIED ABNORMAL FINDINGS OF BLOOD CHEMISTRY Status: Acute Priority: High Current Visit: Yes Onset Date: 06/15/20 Annotation/Comment:: Note negative CTA of the chest as above. No clinical evidence of DVT or PE. Consider venous Doppler studies of the lower extremities by accepting providers depending on his clinical course. (4) Diabetes mellitus SNOMED Code(s): 00803656 Code(s): E11.9 - TYPE 2 DIABETES MELLITUS WITHOUT COMPLICATIONS Status: Chronic Priority: Medium Current Visit: Yes Annotation/Comment:: Consider glycosylated hemoglobin by accepting providers. Qualifiers: Diabetes mellitus type: type 2 Diabetes mellitus chcf insulin use: without rodent exterminator use Diabetes mellitus complication status: without complication Qualified Code(s): E11.9 - Type 2 diabetes mellitus without complications (5) Elevated CK SNOMED Code(s): 678357716 Code(s): R74.8 - ABNORMAL LEVELS OF OTHER SERUM ENZYMES Status: Acute Priority: High Current Visit: Yes Onset Date: 06/15/20 Annotation/Comment:: Normal CK MB and cardiac index. No clinical evidence of rhabdomyolysis. Note current Lipitor therapy with no history of myalgias. Consider initiation of Coenzyme q10. continue to observe closely by regular providers. (6) Hyperlipidemia SNOMED Code(s): 81528327 Code(s): E78.5 - HYPERLIPIDEMIA, UNSPECIFIED Status: Chronic Priority: Medium Current Visit: Yes Annotation/Comment:: Weight loss in moderation is advisable. Note obesity despite previous gastric bypass. Consider fasting lipid profile by accepting providers. Qualifiers: Hyperlipidemia type: unspecified Qualified Code(s): E78.5 - Hyperlipidemia, unspecified (7) Hypertension SNOMED Code(s): 62067804 Code(s): I10 - ESSENTIAL (PRIMARY) HYPERTENSION Status: Chronic Priority: Medium Current Visit: Yes Annotation/Comment:: Blood pressure somewhat elevated in our facility however improved prior to discharge. Qualifiers: Hypertension type: essential hypertension Qualified Code(s): I10 - Essential (primary) hypertension (8) Leukocytosis SNOMED Code(s): 198573784, 028058194 Code(s): D72.829 - ELEVATED WHITE BLOOD CELL COUNT, UNSPECIFIED Status: Acute Priority: Medium Current Visit: Yes Onset Date: 06/15/20 Annotation/Comment:: Leukocytosis likely secondary to stress reaction. No fever or evidence of infection. Continue to observe closely by accepting providers Qualifiers: Leukocytosis type: bandemia Qualified Code(s): D72.825 - Bandemia (9) Mixed anxiety and depressive disorder SNOMED Code(s): 281015434 Code(s): F41.8 - OTHER SPECIFIED ANXIETY DISORDERS Status: Chronic Priority: Medium Current Visit: Yes Annotation/Comment:: Stable by patient history. Continue to observe closely by accepting and regular providers. (10) Tobacco abuse counseling SNOMED Code(s): 876990997, 163902299, 967617147 Code(s): Z71.6 - TOBACCO ABUSE COUNSELING Status: Chronic Priority: Medium Current Visit: Yes Annotation/Comment:: Tobacco cessation was strongly encouraged with tobacco cessation information to be provided to the patient at time of discharge from [facility]. (11) Cardiac murmur SNOMED Code(s): 59259671 Code(s): R01.1 - CARDIAC MURMUR, UNSPECIFIED Status: Acute Priority: Medium Current Visit: Yes Onset Date: 06/15/20 Annotation/Comment:: Mild aortic valve stenosis and mitral valve insufficiency by clinical exam. Observe for now. Echocardiogram depending on his clinical course. (12) PVCs (premature ventricular contractions) SNOMED Code(s): 72375110 Code(s): I49.3 - VENTRICULAR PREMATURE DEPOLARIZATION Status: Chronic Priority: Medium Current Visit: Yes Annotation/Comment:: Previous history of PVCs. No arrhythmia during his emergency room care. - Problem List Review Problem List Initiated/Reviewed/Updated: Yes - My Orders Last 24 Hours: My Active Orders 06/15/20 Breakfast Nothing per Oral Now Diet [DIET] 06/15/20 18:41 Cardiac Monitoring [RC] . DIRECTED EKG Documentation Completion [RC] ASDIRECTED Oxygen Therapy, ED [RC] PRN Peripheral IV Care [RC] . DIRECTED Pulse Oximetry [RC] CONTINUOUS Up With Assistance [RC] PFP Vital Signs [RC] PFP Chest 1V Frontal [CR] Stat Sodium Chloride 0.9% [Saline Flush] 10 ml FLUSH ASDIRECTED PRN Obtain Past Medical Record [OM.PC] Urgent Peripheral IV Insertion Adult [OM.PC] Stat Resuscitation Status Stat 06/15/20 19:31 Chest PE [Ang Chest] [CT] Stat - Assessment/Plan Last 24 Hours: My Active Orders 06/15/20 Breakfast Nothing per Oral Now Diet [DIET] 06/15/20 18:41 Cardiac Monitoring [RC] . DIRECTED EKG Documentation Completion [RC] ASDIRECTED Oxygen Therapy, ED [RC] PRN Peripheral IV Care [RC] . DIRECTED Pulse Oximetry [RC] CONTINUOUS Up With Assistance [RC] PFP Vital Signs [RC] PFP Chest 1V Frontal [CR] Stat Sodium Chloride 0.9% [Saline Flush] 10 ml FLUSH ASDIRECTED PRN Obtain Past Medical Record [OM.PC] Urgent Peripheral IV Insertion Adult [OM.PC] Stat Resuscitation Status Stat 06/15/20 19:31 Chest PE [Ang Chest] [CT] Stat Assessment:: As above Plan: As above. Extensive precautions were given to the patient and his children, who are in agreement with the treatment plan. Ambulance transfer with keyseater operator accompaniment as above.
[2020-06-15] MEDS ORDERED: Ondansetron 4 MG/2 ML SDV IVPUSH ONE (20:57)
[2020-06-15] MEDS ORDERED: Morphine 2 MG/ML SYRINGE IVPUSH ONE (20:57)
[2020-06-15] MEDS ORDERED: Enoxaparin 100 MG/1 ML Syringe SUBCUT ONE (21:09)
== END 2020-06-15 22:00 ==
LOC: LL.ED 18:40
DX: J43.1 Panlobular emphysema (principal); D72.825 Bandemia; E11.9 Type 2 diabetes mellitus without complications; I10 Essential (primary) hypertension; Z71.6 Tobacco abuse counseling; F41.8 Other specified anxiety disorders; R01.1 Cardiac murmur, unspecified; I49.3 Ventricular premature depolarization; I25.10 Atherosclerotic heart disease of native coronary artery without angina pectoris; E78.00 Pure hypercholesterolemia, unspecified; I25.2 Old myocardial infarction; M19.90 Unspecified osteoarthritis, unspecified site; E66.9 Obesity, unspecified; R79.1 Abnormal coagulation profile; R74.8 Abnormal levels of other serum enzymes; Z72.0 Tobacco use; Z88.0 Allergy status to penicillin; Z79.82 Long term (current) use of aspirin; Z79.02 Long term (current) use of antithrombotics/antiplatelets; Z79.84 Long term (current) use of oral hypoglycemic drugs; Z79.899 Other long term (current) drug therapy; Z95.5 Presence of coronary angioplasty implant and graft; Z86.73 Personal history of transient ischemic attack (TIA), and cerebral infarction without residual deficits; Z20.828 Contact with and (suspected) exposure to other viral communicable diseases
CPT/HCPCS: 36415; 71045; 71275; 80053; 82550; 82553; 83605; 83735; 83880; 84443; 84484; 84550; 85025; 85379; 85610; 85730; 87426; 93005; 93010; 96372; 96374; 96375; 99284; 99285; A9270; J1650; J2270; J2405; J3490; Q9967

== ENCOUNTER 2024-08-23 19:29 | Emergency (ER) | payer OTHER ==
[2024-08-23] MEDS: Ondansetron 4 MG/2 ML SDV IVPUSH ONE (19:52)
[2024-08-23] MEDS ORDERED: Naloxone 0.4 MG/ML SDV IVPUSH PRN (19:52)
[2024-08-23] MEDS: fentaNYL 50 MCG/ML SDV IVPUSH ONE (19:53)
[2024-08-23 20:11] LABS: BASOPHILS ABSOLUTE AUTO 0.08 K/uL (0.00-0.20); BASOPHILS PERCENT AUTO 0.7 % (0.0-2.0); EOSINOPHILS ABSOLUTE AUTO 0.23 K/uL (0.00-0.50); EOSINOPHILS PERCENT AUTO 2.1 % (0.0-5.0); HEMOGLOBIN 16.7 g/dL (13.1-16.8); IMMATURE GRAN ABSOLUTE AUTO 0.02 10^3/uL (0.00-0.04); IMMATURE GRAN PERCENT AUTO 0.2 % (0.0-0.4); LYMPHOCYTES ABSOLUTE AUTO 3.04 K/uL (0.50-3.50); LYMPHOCYTES PERCENT AUTO 28.1 % (10.0-50.0); MEAN CORPUSCULAR HEMOGLOBIN 29.6 pg (28.2-33.3); MEAN CORPUSCULAR HGB CONC 34.1 g/dL (31.7-36.0); MEAN CORPUSCULAR VOLUME 86.9 fL (84.0-98.0); MONOCYTES ABSOLUTE AUTO 0.76 K/uL (0.00-1.00); NEUTROPHILS ABSOLUTE AUTO 6.67 K/uL (1.40-7.00); NEUTROPHILS PERCENT AUTO 61.9 % (45.0-80.0); PLATELET COUNT,PLT 291 K/uL (150-350); RED BLOOD CELL COUNT 5.64 M/uL (4.33-5.41); RED CELL DISTRIBUTION WIDTH 13.2 % (11.2-14.1); WHITE BLOOD CELL COUNT,WBC 10.8 K/uL (4.0-10.2)
[2024-08-23 20:30] LABS: PROTHROMBIN TIME 10.4 SEC (9.0-11.1)
[2024-08-23 20:32] LABS: ALANINE AMINOTRANSFERASE,ALT 25 U/L (12-78); ALBUMIN 4.1 g/dL (3.4-5.0); ALKALINE PHOSPHATASE 132 IU/L (46-116); ANION GAP 12.8 meq/L (7-15); ASPARTATE AMNIOTRANSFERASE,AST 16 U/L (15-37); BILIRUBIN TOTAL 0.5 mg/dL (0.2-1.0); BLOOD UREA NITROGEN,BUN 23 mg/dL (7-18); C-REACTIVE PROTEIN 0.12 mg/dL (0.05-0.30); CALCIUM 9.1 mg/dL (8.5-10.1); CARBON DIOXIDE,CO2 22.2 mmol/L (21.0-32.0); CHLORIDE,CL 102 mmol/L (98-107); CREATININE 1.57 mg/dL (0.51-1.17); GLUCOSE RANDOM 290 mg/dL (70-99); MAGNESIUM 2.1 mg/dL (1.8-2.4); POTASSIUM,K 4.3 mmol/L (3.5-5.1); SODIUM,NA 137 mmol/L (136-145)
[2024-08-23 20:40] LABS: ESTIMATED GFR 50 mL/min (>=60)
[2024-08-23] MEDS: Sodium Chloride 0.9% 10 ML Syringe FLUSH PRN (21:05)
[2024-08-23] MEDS: diazePAM 10 MG/2 ML Syringe IVPUSH ONE ×2 (21:05→21:09)
== END 2024-08-23 22:00 ==
LOC: LL.ED 19:29
DX: K56.2 Volvulus (principal); I10 Essential (primary) hypertension; E66.9 Obesity, unspecified; E11.9 Type 2 diabetes mellitus without complications; E78.00 Pure hypercholesterolemia, unspecified; Z90.49 Acquired absence of other specified parts of digestive tract; F17.200 Nicotine dependence, unspecified, uncomplicated; Z88.0 Allergy status to penicillin; Z79.82 Long term (current) use of aspirin; Z79.899 Other long term (current) drug therapy
CPT/HCPCS: 36415; 74176; 80053; 82947; 83690; 83735; 85025; 85610; 86140; 96374; 96375; 99285-25; J2405; J3010; J3360